=== PATIENT | female | born 1930 | race Hispanic/Latino ===

== ENCOUNTER 2018-01-11 09:18 | Emergency (ER) | payer MEDICARE, OTHER ==
[2018-01-11 09:18] VITALS: BMI 25.3
[2018-01-11 09:51] VITALS: O2SAT 98
[2018-01-11] MEDS ORDERED: Sodium Chloride 0.9% 500 ML IV SCH (11:00)
--- NOTE | 2018-01-11 11:01 | ED PDOC ---
HPI: General Adult Time Seen by Provider: 01/11/18 10:25 Chief Complaint (Nursing): Weakness/Neurological Deficit Chief Complaint (Provider): weakness History Per: Patient, Other (family friend at beside) History/Exam Limitations: no limitations Onset/Duration Of Symptoms: Other (4 days) Have you had recent travel within the past 21 days to any of the following countries: [place], [place], [place] or [place]?: No Current Symptoms Are (Timing): Intermittent Episodes Severity: Moderate Additional History Per: Prior Records Additional Complaint(s): pt p/w + sudden onset of not feeling well, + generalized weakness; pt states over the last 4 days or so, noted intermittent dizziness/room spinning feeling, + progressive weakness; pt states she was performing morning prayer today when she felt sudden weakness and "felt very cold on her inside;" pt's neighboorhood friend checked up on her and checked her BP and noted it to be elevated; no fever/chills/sweats, no cp/sob/palpitations, no abd pain, no n/v, no numbness/ tingling, no focal weakness, no vision changes, no lane, no neck pain, no urinary/ bowel changes, no incontinence; + b/l leg wobbly/weak feeling (has had in the past however); pt also was prescribed a alexis, but pt does not use regularly; pt states no slurr speech, no arm weakness, no fall/trauma/sick contact, no corporate travel expert is here for further eval pt's without other complaints. PCP: Joce pt lives alone pt is right hand dominate Past Medical History Reviewed: Historical Data, Nursing Documentation, Vital Signs Vital Signs: Last Vital Signs Temp 97.9 F 01/11/18 14:43 Pulse 70 01/11/18 14:43 Resp 17 01/11/18 14:43 BP 136/77 01/11/18 14:43 Pulse Ox 98 01/11/18 14:47 - Medical History PMH: Depression, HTN, Hypercholesterolemia - Surgical History Surgical History: Appendectomy, Cholecystectomy - Family History Family History: States: No Known Family Hx - Home Medications Home Medications: Ambulatory Orders Medication Instructions Recorded Ibuprofen [Motrin] 600 mg PO Q6 PRN #20 tab 05/20/15 Meclizine [Meclizine*] 25 mg PO TID PRN #15 tab 01/11/18 - Allergies Allergies/Adverse Reactions: Allergies Allergy/AdvReac Type Severity Reaction Status Date / Time Diazepam Allergy FATIGUE Uncoded 01/11/18 10:40 Review of Systems ROS Statement: Except As Marked, All Systems Reviewed And Found Negative Constitutional: Positive for: Weakness, Malaise Eyes: Negative for: Vision Change Cardiovascular: Negative for: Chest Pain, Light Headedness Gastrointestinal: Negative for: Nausea, Vomiting Neurological: Positive for: Weakness, Dizziness. Negative for: Altered Mental Status, Headache Physical Exam - Reviewed Nursing Documentation Reviewed: Yes Vital Signs Reviewed: Yes (mildly elevated BP) - Physical Exam Appears: Positive for: Well, Non-toxic, No Acute Distress Head Exam: Positive for: ATRAUMATIC, NORMAL INSPECTION, NORMOCEPHALIC Skin: Positive for: Normal Color (cap refill < 1sec, no ulcerations, no petechiae) Eye Exam: Positive for: Normal appearance, Other (no photophobia, sclera anicteric) ENT: Positive for: Normal ENT Inspection Neck: Positive for: Normal (intact ROM, no midline tenderness, no step off, no nuchal rigidity, no meningeal signs) Cardiovascular/Chest: Positive for: Regular Rate, Rhythm (+S1, +S2). 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 Negative for : Facial Droop - Laboratory Results Result Diagrams: 01/11/18 11:35 01/11/18 11:35 - ECG ECG: Positive for: Interpreted By Me Interpretation Of ECG: NSR at 65 bpm, normal axis, no ectopy, no st-t changes, NORMAL EKG; unchanged compare with old ekg 01/2017 O2 Sat by Pulse Oximetry: 98 Pulse Ox Interpretation: Normal - Progress ED Course And Treament: PROCEDURE: CT scan of the brain dated 01/11/2018 HISTORY: Weakness; no focal weakness currently COMPARISON: Comparison made with prior CT scan of the brain 06/24/2011 TECHNIQUE: Axial computed tomography images were obtained through the head/brain without intravenous contrast. Radiation dose: Total exam DLP = 724.0 mGy-cm. This CT exam was performed using one or more of the following dose reduction techniques: Automated exposure control, adjustment of the mA and/or kV according to patient size, and/or use of iterative reconstruction technique. FINDINGS: HEMORRHAGE: No evidence of acute parenchymal, subarachnoid or extra-axial hemorrhage. . BRAIN: Mild diffuse/ confluent chronic periventricular white as well as scattered subcortical ischemic changes. Additionally, there are scattered chronic bilateral basal nuclei lacunar type infarcts. Note that the possibility of a small hyperacute infarct cannot be completely excluded. Clinical correlation recommended. . No obvious parenchymal nor extra-axial mass or collection seen on this noncontrast study Mild vascular calcifications both carotid siphons. Mild to moderate age-appropriate volume loss with prominent as posterior fossa subarachnoid spaces VENTRICLES: No obstructive hydrocephalus. CALVARIUM: There are no acute calvarial fractures. . PARANASAL SINUSES: The frontal sinuses are underpneumatized/ hypoplastic. Remaining visualized paranasal sinuses are well-developed. MASTOID AIR CELLS: Unremarkable as visualized. No inflammatory changes. OTHER FINDINGS: Changes of bilateral cataract surgery are present. IMPRESSION: Chronic white matter and basal nuclei ischemic changes. Mild age-appropriate volume loss. Mild to moderate age-appropriate volume loss with prominent as posterior fossa subarachnoid spaces HISTORY: Weakness COMPARISON: No prior. TECHNIQUE: Chest PA and lateral FINDINGS: LUNGS: No acute consolidation. PLEURA: No significant pleural effusion identified. No pneumothorax apparent. CARDIOVASCULAR: Heart size is within range of normal. Aorta slightly ectatic and uncoiled. . OSSEOUS STRUCTURES: Mild levoscoliosis centered at the lower lumbar region. VISUALIZED UPPER ABDOMEN: Normal. OTHER FINDINGS: None. IMPRESSION: No acute consolidation. pt is doing well currently pt is not in any distress pt's daughter is now at bedside 2:30pm - pt is ambulatory without any assistance pt/family are made aware of her medical results pt is encouraged walking with her alexis at all times pt is encouraged fluids pt will f/u as directed pt will be discharged home Re-evaluation Time: 14:30 Condition: Improved - Physician Consult Information Time Consulting Physican Contacted: 14:27 Physician Contacted: josé antonio Outcome Of Conversation: spoke to PCP, made aware, agrees with ED mgt/txt/dx, will f/u with patient outpt for further eval Medical Decision Making Medical Decision Making: Impression: weakness, transient elevated BP i have consider all the differential diagnosis regarding pt's chief medical complaints/clinical findings, including but are not limited to: weakness, transiently elevated BP A/P: weakness, transiently elevated BP - labs - ct - ua - iv - xray - observe - supportive care 13:13 CXR FINDINGS: LUNGS: No acute consolidation. PLEURA: No significant pleural effusion identified. No pneumothorax apparent. CARDIOVASCULAR: Heart size is within range of normal. Aorta slightly ectatic and uncoiled. . OSSEOUS STRUCTURES: Mild levoscoliosis centered at the lower lumbar region. VISUALIZED UPPER ABDOMEN: Normal. OTHER FINDINGS: None. IMPRESSION: No acute consolidation. Disposition - Clinical Impression Clinical Impression: Dizziness, Weakness, Elevated blood pressure reading - Patient ED Disposition Is Patient to be Admitted: No Discussed With Dr.: Ricki Hobson Doctor Will See Patient In The: Office Counseled Patient/Family Regarding: Studies Performed, Diagnosis, Need For Followup, Rx Given - Disposition Referrals: Ricki Hobson MD [Staff Provider] - Disposition: Routine/Home Disposition Time: 14:33 Condition: STABLE Additional Instructions: Make sure to see your doctor in 1-2 days DRINK PLENTY OF FLUIDS take your medications as prescribed USE your alexis at all times RETURN TO ED IF worse pain, cant breath, persistent vomiting, high fever >101- 102 for hours, altered behavior, slurr speech, facial changes, cant see, focal weakness (arm/leg or both), unable to urinate, heavy/persistent bleeding, passing out, chest pain, or other medical emergencies Prescriptions: Meclizine [Meclizine*] 25 mg PO TID PRN #15 tab PRN Reason: Dizziness Instructions: Fatigue (DC), Generalized Weakness (DC), Dizziness, Nonvertigo, ( DC), Weakness (ED), Hypertension (ED) Forms: [employer] (Khmer) Print Language: SAMI
[2018-01-11 11:53] LABS: BASO % 0.3 % (0.0-2.0); EOS # 0.1 K/uL (0.0-0.7); EOS % 0.9 % (0.0-4.0); LYMPH # 1.6 K/uL (1.0-4.3); LYMPH % 20.9 % (20.0-40.0); MEAN CELL VOLUME 89.7 fl (81.0-99.0); MEAN CORPUSCULAR HGB CONC 34.5 g/dL (33.0-37.0); MEAN PLATELET VOLUME 7.3 fl (7.2-11.7); MONO # 0.3 K/uL (0.0-0.8); MONO % 4.5 % (0.0-10.0); NEUT # 5.7 K/uL (1.8-7.0); NEUT % 73.4 % (50.0-75.0); NRBC % 0.1 % (0.0-0.0); RBC 4.86 Mil/uL (3.80-5.20); RED CELL DISTRIBUTION WIDTH 13.5 % (11.5-14.5); WHITE BLOOD COUNT 7.7 K/uL (4.8-10.8)
[2018-01-11 12:02] LABS: URINE BILIRUBIN NEGATIVE (NEGATIVE); URINE BLOOD SMALL (NEGATIVE); URINE CLARITY CLEAR (Clear); URINE COLOR STRAW (YELLOW); URINE GLUCOSE (UA) NEG (Normal); URINE LEUKOCYTE ESTERASE NEG Leu/uL (Negative); URINE PROTEIN NEGATIVE (NEGATIVE); URINE UROBILINOGEN 0.2-1.0 mg/dL (0.2-1.0)
[2018-01-11 12:06] LABS: ALB/GLOB RATIO 1.1 (1.0-2.1); ALBUMIN 4.1 g/dL (3.5-5.0); ALT/SGPT 35 U/L (9-52); AST/SGOT 34 U/L (14-36); BLOOD UREA NITROGEN 14 mg/dl (7-17); CALCIUM 9.5 mg/dL (8.4-10.2); GFR AFRICAN-AMERICAN > 60; GFR NON-AFRICAN AMERICAN > 60; LIPASE 95 U/L (23-300)
--- NOTE | 2018-01-11 13:15 | RAD ---
HISTORY: Weakness COMPARISON: No prior. TECHNIQUE: Chest PA and lateral FINDINGS: LUNGS: No acute consolidation. PLEURA: No significant pleural effusion identified. No pneumothorax apparent. CARDIOVASCULAR: Heart size is within range of normal. Aorta slightly ectatic and uncoiled. . OSSEOUS STRUCTURES: Mild levoscoliosis centered at the lower lumbar region. VISUALIZED UPPER ABDOMEN: Normal. OTHER FINDINGS: None. IMPRESSION: No acute consolidation.
--- NOTE | 2018-01-11 13:25 | CT ---
PROCEDURE: CT scan of the brain dated 01/11/2018 HISTORY: Weakness; no focal weakness currently COMPARISON: Comparison made with prior CT scan of the brain 06/24/2011 TECHNIQUE: Axial computed tomography images were obtained through the head/brain without intravenous contrast. Radiation dose: Total exam DLP = 724.0 mGy-cm. This CT exam was performed using one or more of the following dose reduction techniques: Automated exposure control, adjustment of the mA and/or kV according to patient size, and/or use of iterative reconstruction technique. FINDINGS: HEMORRHAGE: No evidence of acute parenchymal, subarachnoid or extra-axial hemorrhage. . BRAIN: Mild diffuse/ confluent chronic periventricular white as well as scattered subcortical ischemic changes. Additionally, there are scattered chronic bilateral basal nuclei lacunar type infarcts. Note that the possibility of a small hyperacute infarct cannot be completely excluded. Clinical correlation recommended. . No obvious parenchymal nor extra-axial mass or collection seen on this noncontrast study Mild vascular calcifications both carotid siphons. Mild to moderate age-appropriate volume loss with prominent as posterior fossa subarachnoid spaces VENTRICLES: No obstructive hydrocephalus. CALVARIUM: There are no acute calvarial fractures. . PARANASAL SINUSES: The frontal sinuses are underpneumatized/ hypoplastic. Remaining visualized paranasal sinuses are well-developed. MASTOID AIR CELLS: Unremarkable as visualized. No inflammatory changes. OTHER FINDINGS: Changes of bilateral cataract surgery are present. IMPRESSION: Chronic white matter and basal nuclei ischemic changes. Mild age-appropriate volume loss. Mild to moderate age-appropriate volume loss with prominent as posterior fossa subarachnoid spaces
[2018-01-11 14:44] VITALS: BP 136/77; PULSE 70; RESP 17; TEMP 97.9
--- NOTE | 2018-01-12 18:16 | CARD ---
APPROVED REPORT EKG Measurement Heart [id number] <Conclusion> Normal sinus rhythm Normal ECG
== END 2018-01-11 14:53 | disposition home or self-care (01) ==
LOC: H.ER 09:18
DX: R42 Dizziness and giddiness (principal); I10 Essential (primary) hypertension; Z86.59 Personal history of other mental and behavioral disorders; E78.00 Pure hypercholesterolemia, unspecified
CPT/HCPCS: 70450; 71046; 80053; 81003; 83690; 83735; 84100; 84443; 84484; 85025; 93005; 96360; 96361; 99285; J7040

== ENCOUNTER 2018-04-10 08:01 | Emergency (ER) | payer MEDICARE, OTHER ==
[2018-04-10 08:04] VITALS: BMI 23.3
[2018-04-10] MEDS ORDERED: Sodium Chloride 0.9% 1,000 ML IV STA (08:09)
--- NOTE | 2018-04-10 08:24 | ED PDOC ---
HPI: General Adult Time Seen by Provider: 04/10/18 08:09 Chief Complaint (Nursing): GI Problem Chief Complaint (Provider): Dizziness History Per: Patient History/Exam Limitations: no limitations Onset/Duration Of Symptoms: Days (last night) Current Symptoms Are (Timing): Still Present Additional History Per: EMS Additional Complaint(s): 87 year old female with PMHx of osteoporosis and hypertension presents to ED via EMS complaining of dizziness onset last night. Reports it is not associated with headache, chest pain or palpitations. As per EMS, the patients apartment was air conditioned and not excessively hot. Patient denies nausea or vomiting. PMD: No Family Provider Past Medical History Reviewed: Historical Data, Nursing Documentation, Vital Signs Vital Signs: Last Vital Signs Temp 98.6 F 04/10/18 11:58 Pulse 89 04/10/18 11:58 Resp 20 04/10/18 11:58 BP 132/74 04/10/18 11:58 Pulse Ox 97 04/10/18 11:58 - Medical History PMH: Depression, HTN, Hypercholesterolemia Other PMH: osteoporosis - Surgical History Surgical History: Appendectomy, Cholecystectomy - Family History Family History: States: Unknown Family Hx - Home Medications Home Medications: Ambulatory Orders Medication Instructions Recorded Ibuprofen [Motrin] 600 mg PO Q6 PRN #20 tab 05/20/15 Meclizine [Meclizine*] 25 mg PO TID PRN #15 tab 01/11/18 Meclizine [Meclizine*] 25 mg PO Q8 #15 tab 04/10/18 - Allergies Allergies/Adverse Reactions: Allergies Allergy/AdvReac Type Severity Reaction Status Date / Time Diazepam Allergy FATIGUE Uncoded 04/10/18 08:06 Review of Systems ROS Statement: Except As Marked, All Systems Reviewed And Found Negative Cardiovascular: Negative for: Chest Pain, Palpitations Gastrointestinal: Negative for: Nausea, Vomiting Neurological: Positive for: Dizziness. Negative for: Headache Physical Exam - Reviewed Nursing Documentation Reviewed: Yes Vital Signs Reviewed: Yes - Physical Exam Appears: Positive for: Non-toxic Head Exam: Positive for: ATRAUMATIC, NORMAL INSPECTION, NORMOCEPHALIC Skin: Positive for: Normal Color, Warm, Dry Cardiovascular/Chest: Positive for: Regular Rate, Rhythm. Negative for: Murmur Respiratory: Positive for: Normal Breath Sounds. Negative for: Decreased Breath Sounds, Wheezing, Respiratory Distress Gastrointestinal/Abdominal: Positive for: Normal Exam, Bowel Sounds, Soft. Negative for: Tenderness, Guarding, Rebound Neurologic/Psych: Positive for: Alert, Oriented (x3) - Laboratory Results Result Diagrams: 04/10/18 08:29 04/10/18 08:29 - ECG O2 Sat by Pulse Oximetry: 98 (RA) Pulse Ox Interpretation: Normal Medical Decision Making Medical Decision Making: Time: 808 Initial Plan: --EKG --CMP --ED Urine dipstick --CBC w/ Differential --Antivert 25mg PO --Normal Saline 150mls/hr --Reevaluation Scribe Attestation: Documented by Antony Beltran, acting as a scribe for David Lopez MD Provider Scribe Attestation: All medical record entries made by the Scribe were at my direction and personally dictated by me. I have reviewed the chart and agree that the record accurately reflects my personal performance of the history, physical exam, medical decision making, and the department course for this patient. I have also personally directed, reviewed, and agree with the discharge instructions and disposition. Disposition - Clinical Impression Clinical Impression: Vertigo, Heat effects of - Patient ED Disposition Is Patient to be Admitted: No Counseled Patient/Family Regarding: Studies Performed, Diagnosis, Need For Followup, Rx Given - Disposition Referrals: Ricki Hobson MD [Staff Provider] - Disposition: Routine/Home Disposition Time: 11:45 Condition: FAIR Prescriptions: Meclizine [Meclizine*] 25 mg PO Q8 #15 tab Instructions: Vertigo (a Type of Dizziness) Forms: [employer] (Cameroonian)
[2018-04-10 08:34] LABS: BASO % 0.6 % (0.0-2.0); EOS # 0.1 K/uL (0.0-0.7); EOS % 2.5 % (0.0-4.0); HEMOGLOBIN 14.6 g/dL (12.0-16.0); LYMPH # 1.7 K/uL (1.0-4.3); LYMPH % 27.9 % (20.0-40.0); MEAN CELL VOLUME 88.9 fl (81.0-99.0); MEAN CORPUSCULAR HEMOGLOBIN 30.7 pg (27.0-31.0); MEAN CORPUSCULAR HGB CONC 34.6 g/dL (33.0-37.0); MONO # 0.4 K/uL (0.0-0.8); MONO % 6.7 % (0.0-10.0); NEUT # 3.7 K/uL (1.8-7.0); NEUT % 62.3 % (50.0-75.0); NRBC % 0.1 % (0.0-0.0); RBC 4.75 Mil/uL (3.80-5.20); RED CELL DISTRIBUTION WIDTH 13.4 % (11.5-14.5); WHITE BLOOD COUNT 5.9 K/uL (4.8-10.8)
[2018-04-10 08:53] LABS: ALB/GLOB RATIO 1.1 (1.0-2.1); ALBUMIN 4.2 g/dL (3.5-5.0); ALT/SGPT 36 U/L (9-52); AST/SGOT 37 U/L (14-36); BLOOD UREA NITROGEN 13 mg/dl (7-17); CALCIUM 9.4 mg/dL (8.4-10.2); GFR AFRICAN-AMERICAN > 60; GFR NON-AFRICAN AMERICAN > 60
[2018-04-10 11:59] VITALS: BP 132/74; PULSE 89; RESP 20; TEMP 98.6
[2018-04-10 12:37] VITALS: O2SAT 98
--- NOTE | 2018-04-10 14:58 | CARD ---
APPROVED REPORT EKG Measurement Heart [id number] <Conclusion> Normal sinus rhythm Normal ECG
== END 2018-04-10 12:13 | disposition home or self-care (01) ==
LOC: H.ER 08:01
DX: R42 Dizziness and giddiness (principal); T67.3XXA Heat exhaustion, anhydrotic, initial encounter; E78.00 Pure hypercholesterolemia, unspecified; F32.9 Major depressive disorder, single episode, unspecified; I10 Essential (primary) hypertension; M81.0 Age-related osteoporosis without current pathological fracture
CPT/HCPCS: 80053; 82948; 85025; 93005; 99285; J7030

== ENCOUNTER 2018-09-09 14:30 | Inpatient (IN) | payer MEDICARE, OTHER ==
[2018-09-09 14:30] VITALS: BMI 23.3
--- NOTE | 2018-09-09 15:39 | ED PDOC ---
HPI: Back <Chi Santana - Last Filed: 09/09/18 22:50> Chief Complaint (Provider): Back Pain History Per: Patient History/Exam Limitations: no limitations Onset/Duration Of Symptoms: Days (x14) Current Symptoms Are (Timing): Still Present Previous Symptoms: None Associated Symptoms: None Exacerbating Factor(s): Turning, Movement, Other (lying down) Additional Complaint(s): 88 y/o female with a PMHx of HTN and Peripheral Neuropathy presents to the ED for evaluation of constant back pain, onset two weeks ago. Patient states pain worsens with lying down, getting up and walking. Patient denies any injury. However, patient states symptoms esparza when she tried to lift the garage door. Patient reports of having seen a Chiropractor for symptom and was started on pain management where she was started on Flexeril. Patient additionally reports of taking Aleve. Patient denies history of chronic back pain, nausea, vomiting, diarrhea, abdominal pain, chest pain, urinary incontinence, urinary retention, numbness and weakness in the legs. PMD: Ricki Hobson <Madina Rosario A - Last Filed: 09/10/18 11:13> Time Seen by Provider: 09/09/18 14:57 Chief Complaint (Nursing): Back Pain Past Medical History Vital Signs: Last Vital Signs Temp 98.6 F 09/09/18 14:35 Pulse 65 09/09/18 19:34 Resp 18 09/09/18 17:41 BP 127/69 09/09/18 17:41 Pulse Ox 96 09/09/18 19:34 <Chi Santana - Last Filed: 09/09/18 22:50> Reviewed: Historical Data, Nursing Documentation, Vital Signs Vital Signs: Last Vital Signs Temp 98.6 F 09/09/18 14:35 Pulse 65 09/09/18 14:34 Resp BP 137/75 09/09/18 14:34 Pulse Ox 96 09/09/18 14:34 - Medical History PMH: Depression, HTN, Hypercholesterolemia Other PMH: Peripheral Neuropathy - Surgical History Surgical History: Appendectomy, Cholecystectomy - Family History Family History: States: Unknown Family Hx <Madina Rosario - Last Filed: 09/10/18 11:13> - Home Medications Home Medications: Ambulatory Orders Medication Instructions Recorded Atenolol [Tenormin] 50 mg PO DAILY 09/09/18 LORazepam [Ativan] 1 tab PO DAILY 09/09/18 Nortriptyline [Pamelor] 1 tab PO DAILY 09/09/18 Nortriptyline [Pamelor] 1 tab PO DAILY 09/09/18 Omeprazole 1 tab PO DAILY 09/09/18 Primidone [Mysoline] 0.5 tab PO DAILY 09/09/18 RX: Cyclobenzaprine [Flexeril] 5 mg PO BID 09/09/18 - Allergies Allergies/Adverse Reactions: Allergies Allergy/AdvReac Type Severity Reaction Status Date / Time Diazepam Allergy FATIGUE Uncoded 04/10/18 08:06 Review of Systems ROS Statement: Except As Marked, All Systems Reviewed And Found Negative Cardiovascular: Negative for: Chest Pain Gastrointestinal: Negative for: Nausea, Vomiting, Abdominal Pain, Diarrhea Genitourinary Female: Negative for: Frequency, Incontinence Musculoskeletal: Positive for: Back Pain Neurological: Negative for: Weakness, Numbness <Madina Rosario - Last Filed: 09/10/18 11:13> Physical Exam - Reviewed Nursing Documentation Reviewed: Yes Vital Signs Reviewed: Yes - Physical Exam Appears: Positive for: No Acute Distress Head Exam: Positive for: ATRAUMATIC, NORMOCEPHALIC Skin: Positive for: Normal Color, Warm, Dry Eye Exam: Positive for: Normal appearance, EOMI Neck: Positive for: Normal, Painless ROM Cardiovascular/Chest: Positive for: Regular Rate, Rhythm. Negative for: Murmur Respiratory: Positive for: Normal Breath Sounds. Negative for: Respiratory Dist ress Gastrointestinal/Abdominal: Positive for: Normal Exam, Soft. Negative for: Tenderness Back: Positive for: Muscle Spasm, Other (Mild bilateral paraspinal tenderness). Negative for: L CVA Tenderness, R CVA Tenderness Extremity: Positive for: Normal ROM. Negative for: Deformity Neurologic/Psych: Positive for: Alert, Oriented. Negative for: Motor/Sensory Deficits <Madina Rosario - Last Filed: 09/10/18 11:13> - Laboratory Results Result Diagrams: 09/09/18 15:55 09/09/18 15:25 <Chi Santana - Last Filed: 09/09/18 22:50> - Laboratory Results Result Diagrams: 09/10/18 04:40 09/10/18 04:40 - ECG ECG Rhythm: Positive for: Sinus Rhythm. Negative for: ST/T Changes Rate: 65 O2 Sat by Pulse Oximetry: 96 (RA) Pulse Ox Interpretation: Normal <Hieu Rosariojennifer Mary - Last Filed: 09/10/18 11:13> Medical Decision Making Medical Decision Making: Time: 1523 Impression: Back Pain Differentials include but not limited to musculoskeletal pain relating to arthritis, spinal stenosis and discorniation Plan: -- CT Lumbar Spine w/o Contrast -- EKG -- BMP -- ED Urine Dipstick -- CBC with Differentials -- Erythrocyte Sedimentation Rate -- Morphine 2 mg IVP -- Toradol 1 mg IVP Time: [address] RESULTS FINDINGS: VERTEBRAE: Unremarkable. No fracture. Normal alignment. DISCS/SPINAL CANAL/NEURAL FORAMINA: Multilevel severe degenerative disc disease with disc herniations at L1-2 and L3-4. PARASPINAL SOFT TISSUES: Unremarkable. OTHER FINDINGS: None. IMPRESSION: Multilevel severe degenerative disc disease. No acute fracture. Time: 165 -- Labs reviewed and demonstrate no clinically significant abnormalities. Time: 1720 Patient started to complain of chest pain. Ordered troponin and CT chest. [address] Santana, pending CT and reevaluation. Scribe Attestation: Documented by Li Ortiz, acting as a scribe for Madina Rosario MD. Provider Scribe Attestation: All medical record entries made by the Scribe were at my direction and personally dictated by me. I have reviewed the chart and agree that the record accurately reflects my personal performance of the history, physical exam, medical decision making, and the department course for this patient. I have also personally directed, reviewed, and agree with the discharge instructions and disposition. <Madina Rosario - Last Filed: 09/10/18 11:13> Disposition Discussed With DrClaudio: Ricki Hobson (Dr Ruiz) Counseled Patient/Family Regarding: Studies Performed, Diagnosis - Disposition Disposition Time: 20:00 - Pt Status Changed To: Hospital Disposition Of: Observation <Chi Santana - Last Filed: 09/09/18 22:50> - Patient ED Disposition Is Patient to be Admitted: Transfer of Care - Disposition Disposition: Transfer of Care - POA Present On Arrival: None <Madina Rosario - Last Filed: 09/10/18 11:13> - Clinical Impression Clinical Impression: Chest pain - Disposition Condition: FAIR
[2018-09-09 15:46] LABS: BASO % 0.4 % (0.0-2.0); EOS # 0.3 K/uL (0.0-0.7); EOS % 3.2 % (0.0-4.0); HEMOGLOBIN 13.1 g/dL (12.0-16.0); LYMPH # 1.9 K/uL (1.0-4.3); LYMPH % 21.1 % (20.0-40.0); MEAN CELL VOLUME 90.7 fl (81.0-99.0); MEAN CORPUSCULAR HEMOGLOBIN 30.8 pg (27.0-31.0); MEAN PLATELET VOLUME 7.1 fl (7.2-11.7); MONO # 0.6 K/uL (0.0-0.8); MONO % 6.9 % (0.0-10.0); NEUT # 6.2 K/uL (1.8-7.0); NEUT % 68.4 % (50.0-75.0); NRBC % 0.1 % (0.0-0.0); RBC 4.26 Mil/uL (3.80-5.20); RED CELL DISTRIBUTION WIDTH 13.5 % (11.5-14.5); WHITE BLOOD COUNT 9.1 K/uL (4.8-10.8)
[2018-09-09 15:55] LABS: BLOOD UREA NITROGEN 24 mg/dl (7-17); CALCIUM 8.9 mg/dL (8.4-10.2); GFR NON-AFRICAN AMERICAN > 60
--- NOTE | 2018-09-09 16:23 | CT ---
Date of service: 09/09/2018 PROCEDURE: CT Lumbar Spine without contrast HISTORY: lower back pain COMPARISON: None available. TECHNIQUE: Axial computed tomography images were obtained of the lumbar spine without the use of intravenous contrast. Coronal and sagittal reformatted images were created and reviewed. Radiation dose: Total exam DLP = 280.11 mGy-cm. This CT exam was performed using one or more of the following dose reduction techniques: Automated exposure control, adjustment of the mA and/or kV according to patient size, and/or use of iterative reconstruction technique. FINDINGS: VERTEBRAE: Unremarkable. No fracture. Normal alignment. DISCS/SPINAL CANAL/NEURAL FORAMINA: Multilevel severe degenerative disc disease with disc herniations at L1-2 and L3-4. PARASPINAL SOFT TISSUES: Unremarkable. OTHER FINDINGS: None. IMPRESSION: Multilevel severe degenerative disc disease. No acute fracture.
[2018-09-09] MEDS ORDERED: Iodixanol 320 MG/ML 100 ML BOTTLE IV ONE (18:18)
[2018-09-09] MEDS ORDERED: Sodium Chloride 0.9% 50 ML IV ONE (18:18)
--- NOTE | 2018-09-09 20:05 | ED PDOC ---
- Laboratory Results Result Diagrams: 09/09/18 15:55 09/09/18 15:25 - ECG O2 Sat by Pulse Oximetry: 96 (RA) Pulse Ox Interpretation: Normal Medical Decision Making Medical Decision Making: Time: 1899 Patient endorsed to me by Dr. Rosario, pending CT and reevaluation. 1821 CTA Chest FINDINGS: VASCULATURE: AORTA There is no evidence for aneurysm or dissection of the thoracic or abdominal aorta. Advanced atherosclerotic changes. PULMONARY ARTERIES The examination is optimized for assessment of the aorta, rather than the pul monary arteries. No evidence of central or segmental pulmonary embolism is seen. CHEST: Lungs: There is scarring both lungs. There is ill-defined pleural-parenchymal density measuring probably 1.3 x 1.4 cm containing calcification at the left upper lung anteriorly. Small ill-defined parenchymal density is seen at the right middle lobe along the right heart border. Pleural spaces: No evidence of pneumothorax. No pleural effusion. Heart: No cardiomegaly. No significant pericardial effusion. Calcified left hilar mediastinal lymph nodes suspected. ABDOMEN: LIVER Unremarkable. No mass. GALLBLADDER AND BILE DUCTS No calcified stone. No ductal dilation. PANCREAS Unremarkable. No ductal dilation. SPLEEN Unremarkable. ADRENAL No mass. KIDNEYS AND URETERS Multiple left renal cysts largest measuring approximately 4.3 x 2.4 cm present. No hydronephrosis. No solid mass. STOMACH AND BOWEL No obstruction. No bowel wall thickening. No CT evidence of acute diver ticulitis. Large amount of fecal material seen within the colon. APPENDIX No CT evidence of appendicitis. PELVIS: URINARY BLADDER Unremarkable. REPRODUCTIVE Calcified fibroids within the uterus. PERITONEUM No free fluid. No free air. LYMPH NODES No lymphadenopathy is evident. BONES Moderate compression deformity of the lower thoracic vertebral body. IMPRESSION: There is no evidence for aneurysm or dissection of the thoracic or abdominal aorta. Chronic changes within the lungs and old granulomatous disease suspected. Atherosclerotic changes. Left renal cyst. Calcified fibroid uterus. Moderate compression of forming a lower thoracic vertebral body. Clinical correlation advised. 2030 CT reviewed and case discussed with Dr. Hobson, who says patient should be under observation. Patient admitted to Dr. Ruiz, the hospitalist. Scribe Attestation: Documented by Edilma Parks, acting as a scribe for Chi Lema MD. Provider Scribe Attestation: All medical record entries made by the Scribe were at my direction and personally dictated by me. I have reviewed the chart and agree that the record accurately reflects my personal performance of the history, physical exam, medical decision making, and the department course for this patient. I have also personally directed, reviewed, and agree with the discharge instructions and disposition. Disposition - Clinical Impression Clinical Impression: Chest pain - POA Present On Arrival: None - Disposition Disposition: Hospitalized as Observation Patient Disposition Time: 20:00 Condition: FAIR
--- NOTE | 2018-09-09 20:46 | CARD ---
APPROVED REPORT Date of service: 09/09/2018 EKG Measurement Heart [id number] <Conclusion> Normal sinus rhythm Normal Electrocardiogram
--- NOTE | 2018-09-09 20:47 | CARD ---
APPROVED REPORT Date of service: 09/09/2018 EKG Measurement Heart [id number] <Conclusion> Normal sinus rhythm Normal Electrocardiogram
--- NOTE | 2018-09-09 21:14 | CP.PCM.HP ---
<Carlos Maxwell - Last Filed: 09/09/18 22:20> History of Present Illness - History of Present Illness History of Present Illness: 88 y/o female with a PMHx of HTN, Depression and Peripheral Neuropathy presents to the ED for evaluation of constant back pain since 2 weeks ago. Patient states that pain started when she tried to lift the garage door. Patient states pain worsens with lying down, getting up and walking. Patient denies any other injury. She went to a Chiropractor and was started on Flexeril and alleve. She reported not improve with medications and decide to come to the ED. She was taken for spine CT and on the way she started c/o chest pain like a pressure in the middle of chest and b/l jaws, 8/10 and constant. She denies sob, palpitations, arm pain, numbness or weakness, no recent illness or sick contacts. She endorses having this chest pain several times before and that goes on its own. Patient also denies history of chronic back pain, nausea, vomiting, diarrhea, abdominal pain, urinary incontinence, urinary retention, numbness and weakness in the legs. PMD: Dr Hobson PMH: HTN, Peripheral neuropathy Meds: see bellow FMH: mom from stroke, son with stroke PSH: appendectomy, cholecystectomy Allergy: Valium SH: denies etoh, tobacco or ilicit drugs use Present on Admission - Present on Admission Any Indicators Present on Admission: No Review of Systems - Review of Systems All systems: reviewed and no additional remarkable complaints except (HPI) Past Patient History - Past Social History Smoking Status: Never Smoked - CARDIAC Hx Hypercholesterolemia: Yes Hx Hypertension: Yes - PSYCHIATRIC Hx Depression: Yes - SURGICAL HISTORY Hx Appendectomy: Yes Hx Cholecystectomy: Yes - ANESTHESIA Hx Anesthesia: Yes Hx Anesthesia Reactions: No Meds Allergies/Adverse Reactions: Allergies Allergy/AdvReac Type Severity Reaction Status Date / Time Diazepam Allergy FATIGUE Uncoded 04/10/18 08:06 Physical Exam - Constitutional Appears: No Acute Distress - Head Exam Head Exam: NORMAL INSPECTION - Eye Exam Eye Exam: EOMI - Respiratory Exam Respiratory Exam: Clear to Auscultation Bilateral, NORMAL BREATHING PATTERN - Cardiovascular Exam Cardiovascular Exam: REGULAR RHYTHM, +S1, +S2. absent: Systolic Murmur - GI/Abdominal Exam GI & Abdominal Exam: Normal Bowel Sounds, Soft. absent: Distended, Tenderness - Extremities Exam Extremities exam: Negative for: pedal edema - Back Exam Back exam: paraspinal tenderness, tenderness (lumbar spine). absent: CVA tenderness (L), CVA tenderness (R) - Neurological Exam Neurological exam: Alert, CN II-XII Intact, Oriented x3 - Skin Skin Exam: Dry, Warm Results - Vital Signs Recent Vital Signs: Last Vital Signs Temp 98.6 F 09/09/18 14:35 Pulse 64 09/09/18 21:09 Resp 18 09/09/18 21:09 BP 135/99 H 09/09/18 21:09 Pulse Ox 100 09/09/18 21:09 - Labs Result Diagrams: 09/09/18 15:55 09/09/18 15:25 Labs: Laboratory Results - last 24 hr 09/09/18 09/09/18 09/09/18 15:25 15:55 16:13 WBC 9.1 D RBC 4.26 Hgb 13.1 Hct 38.6 MCV 90.7 MCH 30.8 MCHC 34.0 RDW 13.5 Plt Count 303 MPV 7.1 L Neut % (Auto) 68.4 Lymph % (Auto) 21.1 Jenkins % (Auto) 6.9 Eos % (Auto) 3.2 Baso % (Auto) 0.4 Neut # (Auto) 6.2 Lymph # (Auto) 1.9 Jenkins # (Auto) 0.6 Eos # (Auto) 0.3 Baso # (Auto) 0.0 ESR 42 H Sodium 141 Potassium 3.8 Chloride 106 Carbon Dioxide 26 Anion Gap 13 BUN 24 H Creatinine 0.8 Est GFR ( Amer) > 60 Est GFR (Non-Af Amer) > 60 Random Glucose 84 Calcium 8.9 Troponin I < 0.0120 09/09/18 19:43 WBC RBC Hgb Hct MCV MCH MCHC RDW Plt Count MPV Neut % (Auto) Lymph % (Auto) Jenkins % (Auto) Eos % (Auto) Baso % (Auto) Neut # (Auto) Lymph # (Auto) Jenkins # (Auto) Eos # (Auto) Baso # (Auto) ESR Sodium Potassium Chloride Carbon Dioxide Anion Gap BUN Creatinine Est GFR ( Amer) Est GFR (Non-Af Amer) Random Glucose Calcium Troponin I < 0.0120 Assessment & Plan - Assessment and Plan (Free Text) Assessment: 88 yo female patient with PMH of HTN admitted for evaluation and management of chest pain, r/o ACS. Plan: Chest pain - r/o ACS - admit to tele - continue threat monitoring analyst - s/p asa and NTG sl - troponin x2 negative - EKG normal sinus rhythm - Cardiology consulted - f/u labs and trending troponin in am - EKG and Echo in am Back pain - likely secondary to muscle strain, hx of heavy lifting - Lumbar CT: severe multilevel degenerative disc disease, no fractures - continue Naprosyn BID - morphine for severe pain - thoracic X ray in am History of HTN - controlled - continue home meds Peripheral neuropathy - controlled - continue home meds Hx of depression - controlled - continue home meds Prophylaxis - DVT: lovenox sc daily - GI: Protonix bid <Eros Ruiz - Last Filed: 09/10/18 00:14> Results - Vital Signs Recent Vital Signs: Last Vital Signs Temp 97.9 F 09/09/18 21:39 Pulse 64 09/09/18 21:39 Resp 18 09/09/18 21:39 BP 126/64 09/09/18 21:39 Pulse Ox 96 09/09/18 22:54 - Labs Result Diagrams: 09/09/18 15:55 09/09/18 15:25 Labs: Laboratory Results - last 24 hr 09/09/18 09/09/18 09/09/18 15:25 15:55 16:13 WBC 9.1 D RBC 4.26 Hgb 13.1 Hct 38.6 MCV 90.7 MCH 30.8 MCHC 34.0 RDW 13.5 Plt Count 303 MPV 7.1 L Neut % (Auto) 68.4 Lymph % (Auto) 21.1 Jenkins % (Auto) 6.9 Eos % (Auto) 3.2 Baso % (Auto) 0.4 Neut # (Auto) 6.2 Lymph # (Auto) 1.9 Jenkins # (Auto) 0.6 Eos # (Auto) 0.3 Baso # (Auto) 0.0 ESR 42 H Sodium 141 Potassium 3.8 Chloride 106 Carbon Dioxide 26 Anion Gap 13 BUN 24 H Creatinine 0.8 Est GFR ( Amer) > 60 Est GFR (Non-Af Amer) > 60 Random Glucose 84 Calcium 8.9 Troponin I < 0.0120 09/09/18 19:43 WBC RBC Hgb Hct MCV MCH MCHC RDW Plt Count MPV Neut % (Auto) Lymph % (Auto) Jenkins % (Auto) Eos % (Auto) Baso % (Auto) Neut # (Auto) Lymph # (Auto) Jenkins # (Auto) Eos # (Auto) Baso # (Auto) ESR Sodium Potassium Chloride Carbon Dioxide Anion Gap BUN Creatinine Est GFR ( Amer) Est GFR (Non-Af Amer) Random Glucose Calcium Troponin I < 0.0120 Attending/Attestation - Attestation I have personally seen and examined this patient.: Yes I have fully participated in the care of the patient.: Yes I have reviewed all pertinent clinical information: Yes Notes (Text): 09/09/18 23:41 I saw, examined and discussed this patient with Dr Maxwell. I agree with her assessment and plan which indicate my direct input. Ms Duncan is an 88 years old female with hx of HTN and HLD, who comes with 2 weeks of lower back pain, not relieved by Chiropractor nor with what is diego cribed as an epidural. Here in the ED she developed retrosternal chest pain radiating to both sides of the jaws. This was relieved in 15 minutes after receiving NTG . For the Chest pain we will r/o ACS with serial Tropinin and EKG, ECHO. consult Cardiology, and start PRN NTG SL. We will hold ASA at this time until patient is seen by Orthopedic. Treat with Pantoprazole Treat the back pain, degenerative disc disease with NSAID and Morphine, Thoracic spine X Rays, OT/PT and consult Ortho for possible Kyphoplasty of the compression deformity of the lower thoracic vertebral body. Pulmonary consult for the Chronic lung changes of granulomatus disease. Continue home medication for depression. Eros Ruiz MD
[2018-09-09] MEDS ORDERED: Pantoprazole 40 mg EC Tab PO STA (21:28)
[2018-09-09] MEDS: Naproxen 500 MG TAB PO SCH (23:14)
[2018-09-10] MEDS: Potassium Chl 20 mEq in D5-NS 1,000 ML IV SCH ×3 (03:50→21:19)
[2018-09-10 05:41] LABS: BASO % 0.2 % (0.0-2.0); EOS # 0.2 K/uL (0.0-0.7); EOS % 3.1 % (0.0-4.0); HEMOGLOBIN 12.6 g/dL (12.0-16.0); LYMPH # 0.7 K/uL (1.0-4.3); LYMPH % 10.3 % (20.0-40.0); MEAN CELL VOLUME 88.3 fl (81.0-99.0); MEAN CORPUSCULAR HEMOGLOBIN 30.7 pg (27.0-31.0); MEAN CORPUSCULAR HGB CONC 34.8 g/dL (33.0-37.0); MONO # 0.5 K/uL (0.0-0.8); MONO % 6.6 % (0.0-10.0); NEUT # 5.7 K/uL (1.8-7.0); NEUT % 79.8 % (50.0-75.0); NRBC % 0.1 % (0.0-0.0); RBC 4.12 Mil/uL (3.80-5.20); RED CELL DISTRIBUTION WIDTH 13.3 % (11.5-14.5); WHITE BLOOD COUNT 7.1 K/uL (4.8-10.8)
[2018-09-10 06:03] LABS: ALBUMIN 3.3 g/dL (3.5-5.0); ALT/SGPT 288 U/L (9-52); AST/SGOT 455 U/L (14-36); BLOOD UREA NITROGEN 17 mg/dl (7-17); CALCIUM 8.8 mg/dL (8.4-10.2); GFR NON-AFRICAN AMERICAN > 60
[2018-09-10] MEDS ORDERED: Potassium Chloride 20 mEq ER Tab PO ONE (06:31)
[2018-09-10] MEDS: Enoxaparin 40 mg Syringe SC SCH (08:51)
[2018-09-10] MEDS: Naproxen 500 MG TAB PO SCH ×2 (08:53→21:17)
[2018-09-10] MEDS: Pantoprazole 40 mg EC Tab PO SCH ×2 (08:55→21:17)
[2018-09-10] MEDS ORDERED: Pantoprazole 40 mg EC Tab PO SCH (09:00)
--- NOTE | 2018-09-10 09:20 | CP.PCM.CON ---
History of Present Illness - History of Present Illness History of Present Illness: This 88-year-old hypertensive female came into the emergency room complaining of chest discomfort which occurred when she attempted to open a window forcibly. This discomfort did not radiate into her jaw or arms and was not accompanied by any perspiration or nausea or vomiting. The patient reports that she is able to walk 3-4 blocks mostly hampered by her low back pain and has never experienced any chest pain while walking. The patient does indicate that approximately 3 or 4 times during last year she has vaguely felt a retrosternal discomfort when lying in bed accompanied by some jaw discomfort which is never accompanied by any perspiration nausea or vomiting and subsided spontaneously within 10-15 minutes. The patient has a long history of hypertension and takes her medicines regularl y. She admits to smoking when she was 18 years old for a few months. She denies any history of diabetes and has never suffered a myocardial infarction or congestive cardiac failure. Her son underwent cardiac surgery of uncertain nature. Otherwise no other family member has any cardiac issues. Physical examination shows an elderly pleasant female who is able to lie virtually flat in bed and breathes comfortably at 16 breaths a minute and can carry on a conversation. Her heart rate was 70 bpm regular and her blood pressure was 140/74 mmHg. Her jugular venous pressure was not elevated and there was no edema over her lower extremity. The pedal pulses were well felt. Her extremities were warm and nailbeds were pink. There was no central or peripheral cyanosis. There was no clubbing. The apex was not palpable the first and second heart sounds are normal there was no murmur no gallop no rales. Her abdomen was soft liver and spleen are not palpable. Her electrocardiogram taken twice yesterday shows sinus rhythm with a tiny Q wave in lead V2 but otherwise a normal pattern. A similar electrocardiogram is recorded on multiple occasions over last 3-4 years. Her labs show normal troponin levels 3 every 8 hours since her admission. The rest of her labs were noted. Her liver enzymes appeared significantly elevated. There were normal barely 4-5 months back. Impression: Atypical chest pain with no evidence of acute coronary syndrome. The patient is stable from cardiovascular point of view and may be allowed to return home. She would require a nuclear stress test with Lexiscan to evaluate the rare episodes of chest discomfort which she has described over last one year which occurred at rest. 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 - ENDOCRINE/METABOLIC Hx Endocrine Disorders: No - HEMATOLOGICAL/ONCOLOGICAL Hx AIDS: No Hx Human Immunodeficiency Virus (HIV): No - INTEGUMENTARY Hx Dermatological Problems: No - MUSCULOSKELETAL/RHEUMATOLOGICAL Hx Musculoskeletal Disorders: Yes Hx Arthritis: Yes Hx Back Pain: Yes Hx Falls: Yes (slipped on ice in the past) - GASTROINTESTINAL Hx Gastrointestinal Disorders: Yes Hx Gastroesophageal Reflux: Yes Other/Comment: heartburn on medication for it - GENITOURINARY/GYNECOLOGICAL Hx Genitourinary Disorders: Yes Other/Comment: occasional incontinence, wears pads - PSYCHIATRIC Hx Depression: Yes - SURGICAL HISTORY Hx Appendectomy: Yes Hx Cholecystectomy: Yes - ANESTHESIA Hx Anesthesia: Yes Hx Anesthesia Reactions: No Meds Allergies/Adverse Reactions: Allergies Allergy/AdvReac Type Severity Reaction Status Date / Time Diazepam Allergy FATIGUE Uncoded 04/10/18 08:06 - Medications Medications: Current Medications Aspirin (Aspirin Chewable) 81 mg PO DAILY [facility] Last Admin: 09/10/18 08:45 Dose: 81 mg Atenolol (Tenormin) 50 mg PO DAILY [facility] Last Admin: 09/10/18 08:55 Dose: 50 mg Enoxaparin Sodium (Lovenox) 40 mg SC DAILY [facility]; Protocol Last Admin: 09/10/18 08:51 Dose: Not Given Potassium Chloride/Dextrose/Sod Cl (Potassium Chl 20 Meq In D5-Ns) 1,000 mls @ 100 mls/hr IV .Q10H [facility] Last Admin: 09/10/18 03:50 Dose: 100 mls/hr Lorazepam (Ativan) 1 mg PO DAILY [facility] Last Admin: 09/10/18 08:47 Dose: 1 mg Morphine Sulfate (Morphine) 1 mg IVP Q6 PRN PRN Reason: Pain, severe (8-10) Naproxen (Naproxen) 500 mg PO Q12H [facility] Last Admin: 09/10/18 08:53 Dose: 500 mg Nitroglycerin (Nitrostat Sl Tab) 0.4 mg SL Q5M PRN PRN Reason: Other Nortriptyline HCl (Pamelor) 10 mg PO HS [facility] Last Admin: 09/09/18 23:56 Dose: 10 mg Nortriptyline HCl (Pamelor) 25 mg PO [facility] Last Admin: 09/09/18 23:55 Dose: 25 mg Pantoprazole Sodium (Protonix Ec Tab) 40 mg PO Q12 [facility] Last Admin: 09/10/18 08:55 Dose: 40 mg Primidone (Mysoline) 25 mg PO HS [facility] Last Admin: 09/09/18 23:55 Dose: 25 mg Results - Vital Signs Recent Vital Signs: Last Vital Signs Temp 98.1 F 09/10/18 08:01 Pulse 80 09/10/18 08:55 Resp 22 09/10/18 08:01 BP 136/65 09/10/18 08:55 Pulse Ox 95 09/10/18 08:01 - Labs Result Diagrams: 09/10/18 04:40 09/10/18 04:40 Labs: Laboratory Results - last 24 hr 09/09/18 09/09/18 09/09/18 15:25 15:55 16:13 WBC 9.1 D RBC 4.26 Hgb 13.1 Hct 38.6 MCV 90.7 MCH 30.8 MCHC 34.0 RDW 13.5 Plt Count 303 MPV 7.1 L Neut % (Auto) 68.4 Lymph % (Auto) 21.1 Chambers % (Auto) 6.9 Eos % (Auto) 3.2 Baso % (Auto) 0.4 Neut # (Auto) 6.2 Lymph # (Auto) 1.9 Chambers # (Auto) 0.6 Eos # (Auto) 0.3 Baso # (Auto) 0.0 ESR 42 H Sodium 141 Potassium 3.8 Chloride 106 Carbon Dioxide 26 Anion Gap 13 BUN 24 H Creatinine 0.8 Est GFR ( Amer) > 60 Est GFR (Non-Af Amer) > 60 Random Glucose 84 Calcium 8.9 Total Bilirubin AST ALT Alkaline Phosphatase Troponin I < 0.0120 Total Protein Albumin Globulin Albumin/Globulin Ratio 09/09/18 09/10/18 09/10/18 19:43 04:40 04:40 WBC 7.1 RBC 4.12 Hgb 12.6 Hct 36.3 MCV 88.3 D MCH 30.7 MCHC 34.8 RDW 13.3 Plt Count 237 MPV 7.0 L Neut % (Auto) 79.8 H Lymph % (Auto) 10.3 L Chambers % (Auto) 6.6 Eos % (Auto) 3.1 Baso % (Auto) 0.2 Neut # (Auto) 5.7 Lymph # (Auto) 0.7 L Chambers # (Auto) 0.5 Eos # (Auto) 0.2 Baso # (Auto) 0.0 ESR Sodium 140 Potassium 3.4 L Chloride 105 Carbon Dioxide 27 Anion Gap 11 BUN 17 Creatinine 0.8 Est GFR ( Amer) > 60 Est GFR (Non-Af Amer) > 60 Random Glucose 97 Calcium 8.8 Total Bilirubin 0.6 AST 455 H D ALT 288 H D Alkaline Phosphatase 186 H D Troponin I < 0.0120 < 0.0120 Total Protein 6.6 Albumin 3.3 L D Globulin 3.4 Albumin/Globulin Ratio 1.0
--- NOTE | 2018-09-10 09:36 | CP.PCM.CON ---
History of Present Illness - History of Present Illness History of Present Illness: This 88-year-old female who is well known to me from the outpatient setting presented to the emergency department because of severe low back pain which began 2 weeks prior and has not responded to outpatient treatment. She did recall having attempted to open a garage door which was very heavy after which she began to feel this discomfort. She was seen in outpatient setting by a chiropractor and pain management and was started on Flexeril. She did not complain of weakness in the legs or urinary incontinence. She did have an abr upt onset of severe anterior chest pain while in the emergency department and underwent a CT angiogram of the thorax. There is no evidence of abdominal aortic dissection nor any evidence of pulmonary. The finding of note was a CT of the lumbar spine revealed multilevel severe degenerative disc disease, and a compression deformity of the T12 vertebral body was also reported. Past Patient History - Past Medical History & Family History Past Medical History?: Yes - Past Social History Smoking Status: Never Smoked (very briefly during teenage years only a few cigarett) Chewing Tobacco Use: No Cigar Use: No Alcohol: Social Drugs: Denies Home Situation {Lives}: Alone - CARDIAC Hx Hypercholesterolemia: Yes Hx Hypertension: Yes - PULMONARY Hx Respiratory Disorders: No - NEUROLOGICAL Hx Neurological Disorder: No - HEENT Hx HEENT Problems: No - RENAL Hx Chronic Kidney Disease: Yes Other/Comment: cyst to left kidney - ENDOCRINE/METABOLIC Hx Endocrine Disorders: No - HEMATOLOGICAL/ONCOLOGICAL Hx AIDS: No Hx Hepatitis C: Yes (antibody positive) Hx Human Immunodeficiency Virus (HIV): No - INTEGUMENTARY Hx Dermatological Problems: No - MUSCULOSKELETAL/RHEUMATOLOGICAL Hx Arthritis: Yes Hx Back Pain: Yes Hx Falls: Yes (slipped on ice in the past) - GASTROINTESTINAL Hx Gastroesophageal Reflux: Yes Other/Comment: heartburn on medication for it - GENITOURINARY/GYNECOLOGICAL Hx Genitourinary Disorders: Yes Other/Comment: occasional incontinence, wears pads - PSYCHIATRIC Hx Depression: Yes - SURGICAL HISTORY Hx Appendectomy: Yes Hx Cholecystectomy: Yes - ANESTHESIA Hx Anesthesia: Yes Hx Anesthesia Reactions: No Meds Home Medications: Home Medication List Medication Instructions Recorded Confirmed Type Aspirin [Aspirin Chewable] 81 mg PO DAILY chew 09/11/18 Rx Lidocaine 5% [Lidoderm] 2 ea TD DAILY #60 patch 09/11/18 Rx Naproxen 500 mg PO DAILY PRN tab 09/11/18 Rx Atenolol 100 mg PO DAILY #30 tab 09/17/18 Rx Allergies/Adverse Reactions: Allergies Allergy/AdvReac Type Severity Reaction Status Date / Time Diazepam Allergy FATIGUE Uncoded 04/10/18 08:06 - Medications Medications: Current Medications Aspirin (Aspirin Chewable) 81 mg PO DAILY [facility] Last Admin: 09/10/18 08:45 Dose: 81 mg Atenolol (Tenormin) 50 mg PO DAILY [facility] Last Admin: 09/10/18 08:55 Dose: 50 mg Enoxaparin Sodium (Lovenox) 40 mg SC DAILY [facility]; Protocol Last Admin: 09/10/18 08:51 Dose: Not Given Potassium Chloride/Dextrose/Sod Cl (Potassium Chl 20 Meq In D5-Ns) 1,000 mls @ 100 mls/hr IV .Q10H [facility] Last Admin: 09/10/18 03:50 Dose: 100 mls/hr Lorazepam (Ativan) 1 mg PO DAILY [facility] Last Admin: 09/10/18 08:47 Dose: 1 mg Morphine Sulfate (Morphine) 1 mg IVP Q6 PRN PRN Reason: Pain, severe (8-10) Naproxen (Naproxen) 500 mg PO Q12H [facility] Last Admin: 09/10/18 08:53 Dose: 500 mg Nitroglycerin (Nitrostat Sl Tab) 0.4 mg SL Q5M PRN PRN Reason: Other Nortriptyline HCl (Pamelor) 10 mg PO [facility] Last Admin: 09/09/18 23:56 Dose: 10 mg Nortriptyline HCl (Pamelor) 25 mg PO [facility] Last Admin: 09/09/18 23:55 Dose: 25 mg Pantoprazole Sodium (Protonix Ec Tab) 40 mg PO Q12 [facility] Last Admin: 09/10/18 08:55 Dose: 40 mg Primidone (Mysoline) 25 mg PO [facility] Last Admin: 09/09/18 23:55 Dose: 25 mg Physical Exam - Additional Findings Additional findings: Well-nourished, well-developed in mild to moderate distress because of back pain. She appears comfortable at rest but has severe pain with simple movement in bed. Speech is fluent and memory appears intact. Conjunctivae are pink and there is no scleral icterus. Pupils equal and reactive. Neck is supple and trachea is midline. No neck vein distention or carotid bruit. Pharynx is pink and mucous membranes are moist without exudate. Nares are patent bilaterally without exudate or bleeding. No dullness on chest percussion. Equal expansion. Breath sounds are well heard bilaterally without any rales or wheezes. No bronchial breathing or egophony. Markedly tenderness is noted with palpation over the lower thoracic/upper lumbar spine. Heart sounds are well heard and the rhythm is regular without murmur. The abdomen is soft, nontender with normal bowel sounds. No palpable HSM. No dependent edema of lower extremities. No calf tenderness. No CVA tenderness. No cyanosis, rash or ecchymosis. Results - Vital Signs Recent Vital Signs: Last Vital Signs Temp 98.1 F 09/10/18 08:01 Pulse 80 09/10/18 08:55 Resp 22 09/10/18 08:01 BP 136/65 09/10/18 08:55 Pulse Ox 95 09/10/18 08:01 - Labs Result Diagrams: 09/15/18 05:30 09/15/18 05:30 Labs: Laboratory Results - last 24 hr 09/09/18 09/09/18 09/09/18 15:25 15:55 16:13 WBC 9.1 D RBC 4.26 Hgb 13.1 Hct 38.6 MCV 90.7 MCH 30.8 MCHC 34.0 RDW 13.5 Plt Count 303 MPV 7.1 L Neut % (Auto) 68.4 Lymph % (Auto) 21.1 [place] % (Auto) 6.9 Eos % (Auto) 3.2 Baso % (Auto) 0.4 Neut # (Auto) 6.2 Lymph # (Auto) 1.9 [place] # (Auto) 0.6 Eos # (Auto) 0.3 Baso # (Auto) 0.0 ESR 42 H Sodium 141 Potassium 3.8 Chloride 106 Carbon Dioxide 26 Anion Gap 13 BUN 24 H Creatinine 0.8 Est GFR ( Amer) > 60 Est GFR (Non-Af Amer) > 60 Random Glucose 84 Calcium 8.9 Total Bilirubin AST ALT Alkaline Phosphatase Troponin I < 0.0120 Total Protein Albumin Globulin Albumin/Globulin Ratio 09/09/18 09/10/18 09/10/18 19:43 04:40 04:40 WBC 7.1 RBC 4.12 Hgb 12.6 Hct 36.3 MCV 88.3 D MCH 30.7 MCHC 34.8 RDW 13.3 Plt Count 237 MPV 7.0 L Neut % (Auto) 79.8 H Lymph % (Auto) 10.3 L [place] % (Auto) 6.6 Eos % (Auto) 3.1 Baso % (Auto) 0.2 Neut # (Auto) 5.7 Lymph # (Auto) 0.7 L [place] # (Auto) 0.5 Eos # (Auto) 0.2 Baso # (Auto) 0.0 ESR Sodium 140 Potassium 3.4 L Chloride 105 Carbon Dioxide 27 Anion Gap 11 BUN 17 Creatinine 0.8 Est GFR ( Amer) > 60 Est GFR (Non-Af Amer) > 60 Random Glucose 97 Calcium 8.8 Total Bilirubin 0.6 AST 455 H D ALT 288 H D Alkaline Phosphatase 186 H D Troponin I < 0.0120 < 0.0120 Total Protein 6.6 Albumin 3.3 L D Globulin 3.4 Albumin/Globulin Ratio 1.0 Assessment & Plan (1) Back pain of thoracolumbar region Status: Acute Priority: High (2) Elevated LFTs Status: Acute Priority: High (3) Hepatitis C antibody positive in blood Status: Chronic Priority: High - Assessment and Plan (Free Text) Plan: Monitor liver function studies. Etiology may be secondary to Flexeril which was begun after seeing chiropractor. Hep C viral titers. - Date & Time Date: 09/10/18 Time: 09:36
--- NOTE | 2018-09-10 10:56 | CP.PCM.PN ---
<Sourav Roblero - Last Filed: 09/10/18 13:15> Subjective - Date & Time of Evaluation Date of Evaluation: 09/10/18 Time of Evaluation: 08:30 - Subjective Subjective: Pt seen and examined at bedside. Denies chest pain or acute events overnight. Reports chronic history of GERD. Tolerating PO diet. Experiencing regular/normal bowel movements. Objective - Vital Signs/Intake and Output Vital Signs (last 24 hours): Temp Pulse Resp BP Pulse Ox 98.1 F 80 22 136/65 95 09/10/18 08:01 09/10/18 08:55 09/10/18 08:01 09/10/18 08:55 09/10/18 08:01 Intake and Output: 09/10/18 09/10/18 06:59 18:59 Intake Total 600 Output Total 350 100 Balance 250 -100 - Medications Medications: Current Medications Aspirin (Aspirin Chewable) 81 mg PO DAILY [facility] Last Admin: 09/10/18 08:45 Dose: 81 mg Atenolol (Tenormin) 50 mg PO DAILY [facility] Last Admin: 09/10/18 08:55 Dose: 50 mg Enoxaparin Sodium (Lovenox) 40 mg SC DAILY [facility]; Protocol Last Admin: 09/10/18 08:51 Dose: Not Given Potassium Chloride/Dextrose/Sod Cl (Potassium Chl 20 Meq In D5-Ns) 1,000 mls @ 100 mls/hr IV .Q10H [facility] Last Admin: 09/10/18 03:50 Dose: 100 mls/hr Lorazepam (Ativan) 1 mg PO DAILY [facility] Last Admin: 09/10/18 08:47 Dose: 1 mg Morphine Sulfate (Morphine) 1 mg IVP Q6 PRN PRN Reason: Pain, severe (8-10) Naproxen (Naproxen) 500 mg PO Q12H [facility] Last Admin: 09/10/18 08:53 Dose: 500 mg Nitroglycerin (Nitrostat Sl Tab) 0.4 mg SL Q5M PRN PRN Reason: Other Nortriptyline HCl (Pamelor) 10 mg PO HS [facility] Last Admin: 09/09/18 23:56 Dose: 10 mg Nortriptyline HCl (Pamelor) 25 mg PO HS [facility] Last Admin: 09/09/18 23:55 Dose: 25 mg Pantoprazole Sodium (Protonix Ec Tab) 40 mg PO Q12 [facility] Last Admin: 09/10/18 08:55 Dose: 40 mg Primidone (Mysoline) 25 mg PO HS [facility] Last Admin: 09/09/18 23:55 Dose: 25 mg - Labs Labs: 09/10/18 04:40 09/10/18 04:40 - Constitutional Appears: Well, Non-toxic - Eye Exam Eye Exam: EOMI - Neck Exam Neck Exam: Full ROM - Respiratory Exam Respiratory Exam: Clear to Ausculation Bilateral, NORMAL BREATHING PATTERN. absent: Wheezes - Cardiovascular Exam Cardiovascular Exam: REGULAR RHYTHM, +S1, +S2. absent: Murmur - GI/Abdominal Exam GI & Abdominal Exam: Soft, Normal Bowel Sounds. absent: Tenderness - Extremities Exam Extremities Exam: absent: Calf Tenderness - Neurological Exam Neurological Exam: Alert, Awake, CN II-XII Intact, Oriented x3 - Psychiatric Exam Psychiatric exam: Normal Affect, Normal Mood Assessment and Plan - Assessment and Plan (Free Text) Assessment: 88 yo female patient with PMH of HTN, GERD admitted for evaluation and management of chest pain, r/o ACS. 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 Bass: atypical chest pain with no evidence of acute coronary syndrome. Stable and allowed to return home. Nuclear stress test with lexicsan. - Pantoprazole - f/u: EKG and Echo: performed; pending official report Degenerative disc disease - likely secondary to muscle strain, hx of heavy lifting - Lumbar CT: severe multilevel degenerative disc disease, no acute fractures - continue Naprosyn BID - morphine for severe pain - thoracic X ray: pending - PT/OT: ambulation with cane - Physiatry: Dr. Garsia consulted - considering consulting Orthopedics - CTA: chest, abdo, pelvis: pending official read Chronic lung changes of granulomatus disease - Pulmonary consulted: Dr. Hobson: f/u hepatitis panel, quant gold - CXR pulmonary vascular congestion Transaminitis -f/u hepatitis panel, urine tox -f/u CMP -d/c flexeril, possible side affect on liver -Considering hepatotoxic agents and possible GI consult Hypokalemia -K 3.4 -Kcl 20 meq with IVF -f/u CMP History of HTN - controlled - continue home meds Peripheral neuropathy - controlled - continue home meds Hx of depression - controlled - continue home meds Prophylaxis - DVT: lovenox sc daily - GI: Protonix bid Case dw Dr. Sacha Roblero MD PGY2 <Mable Goncalves - Last Filed: 09/10/18 14:33> Objective - Vital Signs/Intake and Output Vital Signs (last 24 hours): Temp Pulse Resp BP Pulse Ox 98.4 F 73 19 109/62 97 09/10/18 12:29 09/10/18 12:29 09/10/18 12:29 09/10/18 12:29 09/10/18 12:29 Intake and Output: 09/10/18 09/10/18 06:59 18:59 Intake Total 600 Output Total 350 100 Balance 250 -100 - Medications Medications: Current Medications Aspirin (Aspirin Chewable) 81 mg PO DAILY [facility] Last Admin: 09/10/18 08:45 Dose: 81 mg Atenolol (Tenormin) 50 mg PO DAILY [facility] Last Admin: 09/10/18 08:55 Dose: 50 mg Enoxaparin Sodium (Lovenox) 40 mg SC DAILY [facility]; Protocol Last Admin: 09/10/18 08:51 Dose: Not Given Potassium Chloride/Dextrose/Sod Cl (Potassium Chl 20 Meq In D5-Ns) 1,000 mls @ 100 mls/hr IV .Q10H [facility] Last Admin: 09/10/18 12:33 Dose: 100 mls/hr Lorazepam (Ativan) 1 mg PO DAILY [facility] Last Admin: 09/10/18 08:47 Dose: 1 mg Morphine Sulfate (Morphine) 1 mg IVP Q6 PRN PRN Reason: Pain, severe (8-10) Naproxen (Naproxen) 500 mg PO Q12H [facility] Last Admin: 09/10/18 08:53 Dose: 500 mg Nitroglycerin (Nitrostat Sl Tab) 0.4 mg SL Q5M PRN PRN Reason: Other Nortriptyline HCl (Pamelor) 10 mg PO HS [facility] Last Admin: 09/09/18 23:56 Dose: 10 mg Nortriptyline HCl (Pamelor) 25 mg PO HS [facility] Last Admin: 12/02/18 23:55 Dose: 25 mg Pantoprazole Sodium (Protonix Ec Tab) 40 mg PO Q12 [facility] Last Admin: 09/10/18 08:55 Dose: 40 mg Primidone (Mysoline) 25 mg PO HS [facility] Last Admin: 09/09/18 23:55 Dose: 25 mg - Labs Labs: 09/10/18 04:40 09/10/18 04:40 Attending/Attestation - Attestation I have personally seen and examined this patient.: Yes I have fully participated in the care of the patient.: Yes I have reviewed all pertinent clinical information, including history, physical exam and plan: Yes Notes (Text): Chest Pain, ACS ruled out prob musculoskeletal Pain - seen by Cardio and cleared - outpt Nuclear Stress test Back Pain , with Compression Deformity Lower thoracic spine - Pain mgt - Dr Garsia - VISHNU Blancas - PT Abn LFT, Pt is Hep C + - check Ferritin - Abd sono : negative - Check Hep C PCR RNA - d/c Hepatotoxic med ( ie:Flexeril) Pt has been on Mysoline and Pamelor for y ears
--- NOTE | 2018-09-10 11:03 | US ---
Date of service: 09/10/2018 HISTORY: elevated LFTs COMPARISON: 01/17/2017. Renal ultrasound TECHNIQUE: Sonographic evaluation of the right upper quadrant of the abdomen. FINDINGS: LIVER: Measures 14.9 cm in length. Patent portal vein. Portal venous flow: Hepatopetal. Unremarkable echogenicity of the liver parenchyma. No mass. No intrahepatic bile duct dilatation. GALLBLADDER: Status post cholecystectomy. No abnormality is seen in the gallbladder fossa. COMMON BILE DUCT: Measures 8.9 mm. No stones. No dilatation. PANCREAS: Unremarkable as visualized. No mass. No ductal dilatation. RIGHT KIDNEY: Measures 4.4 x 10.1 cm in length. Normal echogenicity. No calculus, mass, or hydronephrosis. Incidental finding(s): Sub cm cyst upper pole a stable finding. AORTA: No aneurysmal dilatation. IVC: Unremarkable. OTHER FINDINGS: None . IMPRESSION: No significant or acute findings to account for/ related to the clinical presentation. Additional benign and/or incidental findings described above. No significant interval change compared to the prior examination(s).
--- NOTE | 2018-09-10 11:52 | RAD ---
Date of service: 09/09/2018 HISTORY: Chest pain. COMPARISON: 01/11/2018. FINDINGS: LUNGS: Pulmonary vascular congestion. No focal infiltrates. PLEURA: No significant pleural effusion identified, no pneumothorax apparent. CARDIOVASCULAR: Atherosclerotic calcifications identified primarily aortic arch. Pulmonary vascular congestion more prominent on the present study. OSSEOUS STRUCTURES: No significant abnormalities. VISUALIZED UPPER ABDOMEN: Normal. OTHER FINDINGS: None. IMPRESSION: Pulmonary vascular congestion likely acute.
--- NOTE | 2018-09-10 14:49 | CT ---
PROCEDURE: CT Angiography Chest, Abdomen and Pelvis with and without intravenous contrast HISTORY: chest pain back pain COMPARISON: None. TECHNIQUE: Contiguous axial images of the chest, abdomen and pelvis were obtained in the phase of aortic enhancement. A noncontrast enhanced CT of the chest was also obtained to evaluate for possible intramural thrombus. Coronal and sagittal reformats were generated. IV dose administered: 85 mL Visipaque 320 Radiation dose: Total exam DLP = 720.8 mGy-cm. This CT exam was performed using one or more of the following dose reduction techniques: Automated exposure control, adjustment of the mA and/or kV according to patient size, and/or use of iterative reconstruction technique. FINDINGS: CT ANGIOGRAPHY OF THE CHEST WITH & WITHOUT CONTRAST: AORTA (CHEST AND ABDOMEN): The thoracic and abdominal aorta are unremarkable, without aneurysm, dissection or rupture. No intramural thrombus identified in the thoracic aorta on the non-contrast ct of the chest. The celiac axis, superior mesenteric artery, inferior mesenteric artery and the renal arteries are widely patent. The pelvic arteries are unremarkable. LUNGS: No acute infiltrate. There is nonspecific small airways disease in the anterior and posterior segments of the right upper lobe. There is linear pleural-based scar with calcification in the anterior segment left upper lobe, nonspecific. There is a calcified granuloma in the apical posterior segment of the left upper lobe. MEDIASTINUM: Small hiatal hernia. Normal caliber aorta and pulmonary arterial trunk. No aortic dissection. Normal size heart. LYMPH NODES: Unremarkable. PLEURA: Unremarkable. No pneumothorax. No pleural fluid. BONES: Mild compression deformity of the T12 vertebral body of indeterminate age. OTHER FINDINGS: None. CT ANGIOGRAPHY OF THE ABDOMEN AND PELVIS WITH CONTRAST: LIVER: Normal size, contour and attenuation. Multiple very small nonspecific low-attenuation lesions in both lobes of the liver. There is a larger low-attenuation mass in the medial segment of the left hepatic lobe adjacent to the fissure for the ligamentum teres measuring approximately 1.5 cm. Possible cyst. There is mild intrahepatic biliary dilatation predominantly centrally. The patient is status post cholecystectomy. GALLBLADDER AND BILE DUCTS: Status post cholecystectomy. Mild dilatation of the common bile duct up to 9 mm diameter, consistent with patient age and prior cholecystectomy. PANCREAS: Unremarkable. No gross lesion or ductal dilatation. SPLEEN: Unremarkable. ADRENALS: Unremarkable. No mass. KIDNEYS AND URETERS: 9 mm nonspecific low-attenuation mass upper pole right kidney, likely cyst. Multiple rounded low-attenuation masses in left kidney, likely cysts. The largest of these measures approximately 2.6 cm in diameter. No calculus or hydronephrosis. VASCULATURE: Unremarkable. No aortic aneurysm. There is atherosclerotic calcification of the abdominal aorta. STOMACH AND BOWEL: Small hiatal hernia. No bowel obstruction. Extensive sigmoid diverticulosis. There is quesada colonic diverticulosis noted to a lesser extent. There is mural thickening of the distal half of the transverse colon and of the splenic flexure and proximal descending colon, consistent with nonspecific colitis. APPENDIX: Not positively identified. PERITONEUM: Unremarkable. No free fluid. No free air. LYMPH NODES: Unremarkable. No enlarged lymph nodes. BLADDER: Unremarkable. 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 BONES: No acute fracture. OTHER FINDINGS: None. IMPRESSION: No evidence of thoracic or abdominal aortic dissection or aneurysm. Nonspecific colitis as above. Compression deformity of the T12 vertebra, age indeterminate. Additional minor findings as above.. The preliminary findings for this examination were reported by [facility] at 7:22 p.m. on 09/09/2018. There is discordance of this report with the preliminary findings. Nonspecific colitis was not described in the preliminary report of this examination.
[2018-09-10 17:05] LABS: HEPATITIS B SURFACE AG Negative (NEGATIVE)
[2018-09-10 17:10] LABS: HEPATITIS A IGM NEGATIVE (NEGATIVE); HEPATITIS B CORE AB NEGATIVE (NEGATIVE)
[2018-09-10 18:52] LABS: HEPATITIS C ANTIBODY Reactive (NEGATIVE)
[2018-09-10 19:16] LABS: BARBITURATES, UR NEGATIVE (NEGATIVE); OPIATES, UR NEGATIVE (NEGATIVE)
[2018-09-10 19:31] LABS: BENZODIAZEPINES, UR NEGATIVE (NEGATIVE); PHENCYCLIDINE, UR NEGATIVE (NEGATIVE)
[2018-09-11] MEDS: Potassium Chl 20 mEq in D5-NS 1,000 ML IV SCH ×3 (03:15→22:00)
[2018-09-11 06:47] LABS: ALBUMIN 2.8 g/dL (3.5-5.0); ALT/SGPT 186 U/L (9-52); AST/SGOT 148 U/L (14-36); BLOOD UREA NITROGEN 13 mg/dl (7-17); CALCIUM 8.2 mg/dL (8.4-10.2); GFR NON-AFRICAN AMERICAN > 60; HDL CHOLESTEROL 34 MG/DL (30-70)
[2018-09-11 06:53] LABS: LDL CHOLESTEROL 70 mg/dL (0-129)
--- NOTE | 2018-09-11 06:57 | CP.PCM.PN ---
<Sourav Roblero - Last Filed: 09/11/18 15:47> Subjective - Date & Time of Evaluation Date of Evaluation: 09/11/18 Time of Evaluation: 13:34 - Subjective Subjective: Pt seen and evaluated at bedside. Requests to go home. Denies pain at spine. Reports bilateral lumbar pain. Denies CP/SOB/N/V Pending eval from Dr. Garsia. Objective - Vital Signs/Intake and Output Vital Signs (last 24 hours): Temp Pulse Resp BP Pulse Ox 98.0 F 71 18 124/71 95 09/10/18 23:55 09/10/18 23:55 09/10/18 23:55 09/10/18 23:55 09/10/18 23:55 Intake and Output: 09/10/18 09/11/18 18:59 06:59 Intake Total 1680 Output Total 300 Balance 1380 - Medications Medications: Current Medications Aspirin (Aspirin Chewable) 81 mg PO DAILY [facility] Last Admin: 09/10/18 08:45 Dose: 81 mg Atenolol (Tenormin) 50 mg PO DAILY [facility] Last Admin: 09/10/18 08:55 Dose: 50 mg Enoxaparin Sodium (Lovenox) 40 mg SC DAILY [facility]; Protocol Last Admin: 09/10/18 08:51 Dose: Not Given Potassium Chloride/Dextrose/Sod Cl (Potassium Chl 20 Meq In D5-Ns) 1,000 mls @ 100 mls/hr IV .Q10H [facility] Last Admin: 09/11/18 06:41 Dose: Not Given Lorazepam (Ativan) 1 mg PO DAILY [facility] Last Admin: 09/10/18 08:47 Dose: 1 mg Morphine Sulfate (Morphine) 1 mg IVP Q6 PRN PRN Reason: Pain, severe (8-10) Naproxen (Naproxen) 500 mg PO Q12H [facility] Last Admin: 09/10/18 21:17 Dose: 500 mg Nitroglycerin (Nitrostat Sl Tab) 0.4 mg SL Q5M PRN PRN Reason: Other Nortriptyline HCl (Pamelor) 10 mg PO HS [facility] Last Admin: 09/10/18 21:22 Dose: 10 mg Nortriptyline HCl (Pamelor) 25 mg PO [facility] Last Admin: 09/10/18 21:19 Dose: 25 mg Pantoprazole Sodium (Protonix Ec Tab) 40 mg PO Q12 [facility] Last Admin: 09/10/18 21:17 Dose: 40 mg Primidone (Mysoline) 25 mg PO HS [facility] Last Admin: 09/10/18 21:18 Dose: 25 mg - Labs Labs: 09/10/18 04:40 09/11/18 05:40 - Constitutional Appears: Well, Non-toxic - Eye Exam Eye Exam: EOMI - Neck Exam Neck Exam: Full ROM - Respiratory Exam Respiratory Exam: Clear to Ausculation Bilateral, NORMAL BREATHING PATTERN. absent: Wheezes - Cardiovascular Exam Cardiovascular Exam: REGULAR RHYTHM, +S1, +S2 - GI/Abdominal Exam GI & Abdominal Exam: Soft, Normal Bowel Sounds. absent: Tenderness - Extremities Exam Extremities Exam: absent: Calf Tenderness - Neurological Exam Neurological Exam: Alert, Awake, CN II-XII Intact, Oriented x3 - Psychiatric Exam Psychiatric exam: Normal Affect, Normal Mood Assessment and Plan - Assessment and Plan (Free Text) Assessment: 88 yo female patient with PMH of HTN, GERD admitted for evaluation and management of chest pain, r/o ACS. Plan: Chest pain - r/o ACS; Could be 2/2 to chronic GERD - s/p asa and NTG sl - troponin x3 negative - EKG normal sinus rhythm - Cardiology: Dr. Bass: atypical chest pain with no evidence of acute coronary syndrome. Stable and allowed to return home. - Pantoprazole - Echo: EF 55-60%; mild-moderate pulmonary hypertension Degenerative disc disease - likely secondary to muscle strain, hx of heavy lifting - Lumbar CT: severe multilevel degenerative disc disease, no acute fractures - continue Naprosyn, morphine, lidoderm patches, and ultram - PT/OT: ambulation with cane - Physiatry: Dr. Garsia consulted - CTA: chest, abdo, pelvis: Compression deformity of T12 Transaminitis with history of Hep C -urine tox: neg -CMP levels improved -d/c flexeril: hepatotoxic agent -f/u hepatitis viral load Hypokalemia -resolved -s/p Kcl 20 meq with IVF History of HTN - controlled - continue home meds Peripheral neuropathy - controlled - continue home meds Hx of depression - controlled - continue home meds Prophylaxis - DVT: lovenox sc daily - GI: Protonix bid Case dw Dr. Sacha Roblero MD PGY2 <Mable Goncalves - Last Filed: 09/11/18 18:56> Objective - Vital Signs/Intake and Output Vital Signs (last 24 hours): Temp Pulse Resp BP Pulse Ox 98 F 64 20 127/72 95 09/11/18 16:32 09/11/18 16:32 09/11/18 16:32 09/11/18 16:32 09/11/18 16:32 - Medications Medications: Current Medications Aspirin (Aspirin Chewable) 81 mg PO DAILY [facility] Last Admin: 09/10/18 08:45 Dose: 81 mg Atenolol (Tenormin) 50 mg PO DAILY [facility] Last Admin: 09/11/18 08:54 Dose: 50 mg Enoxaparin Sodium (Lovenox) 40 mg SC DAILY [facility]; Protocol Last Admin: 09/11/18 08:53 Dose: Not Given Potassium Chloride/Dextrose/Sod Cl (Potassium Chl 20 Meq In D5-Ns) 1,000 mls @ 100 mls/hr IV .Q10H [facility] Last Admin: 09/11/18 06:41 Dose: Not Given Lidocaine (Lidoderm) 2 ea TD DAILY [facility] Last Admin: 09/11/18 15:42 Dose: 1 ea Lorazepam (Ativan) 1 mg PO DAILY [facility] Last Admin: 09/11/18 08:57 Dose: 1 mg Morphine Sulfate (Morphine) 1 mg IVP Q6 PRN PRN Reason: Pain, severe (8-10) Naproxen (Naproxen) 500 mg PO Q12H [facility] Last Admin: 09/11/18 08:53 Dose: 500 mg Nitroglycerin (Nitrostat Sl Tab) 0.4 mg SL Q5M PRN PRN Reason: Other Nortriptyline HCl (Pamelor) 10 mg PO HS [facility] Last Admin: 09/10/18 21:22 Dose: 10 mg Nortriptyline HCl (Pamelor) 25 mg PO HS [facility] Last Admin: 09/10/18 21:19 Dose: 25 mg Pantoprazole Sodium (Protonix Ec Tab) 40 mg PO Q12 [facility] Last Admin: 09/11/18 08:54 Dose: 40 mg Primidone (Mysoline) 25 mg PO HS [facility] Last Admin: 09/10/18 21:18 Dose: 25 mg - Labs Labs: 09/10/18 04:40 09/11/18 05:40 Attending/Attestation - Attestation I have personally seen and examined this patient.: Yes I have fully participated in the care of the patient.: Yes I have reviewed all pertinent clinical information, including history, physical exam and plan: Yes Notes (Text): Low Back Pain Pt continues to have back pain - will keep pt in the hospital for pain mgt, Pain Mgt specialist consulted - Dr Garsia MRI of spine to check acuity of T12 compression fracture. Dr Acosta consulted for poss Kyphoplasty TLSO Brace ordered for Compression deformity Lidoderm patch Morphine prn Ultram Chest Pain , resolved likely musculoskeletal Pain - pt had previous cardiac cath 2 yrs ago w/c was negative Abn LFT , history of stable Hepatitis C , increase in LFT prob sec to medications - d/c Flexeril w/c could be hepatotoxic breezy in combination with her Psych meds -LFT trending down
[2018-09-11 07:08] LABS: FERRITIN 97.4 ng/Ml (11.1-264.0)
--- NOTE | 2018-09-11 08:49 | CARD ---
APPROVED REPORT Date of service: 09/10/2018 EXAM: Two-dimensional and M-mode echocardiogram with Doppler and color Doppler. Other Information Quality : GoodRhythm : NSR INDICATION Chest Pain 2D DIMENSIONS IVSd1.03 (0.7-1.1cm)LVDd4.21 (3.9-5.9cm) LVOT Diameter2.12 (1.8-2.4cm)PWd0.82 (0.7-1.1cm) IVSs1.12 (0.8-1.2cm)LVDs3.18 (2.5-4.0cm) FS (%) 24.4 %PWs0.96 (0.8-1.2cm) M-Mode DIMENSIONS Left Atrium (MM)3.82 (2.5-4.0cm)IVSd0.38 (0.7-1.1cm) Aortic Root2.77 (2.2-3.7cm)LVDd5.59 (4.0-5.6cm) Aortic Cusp Exc.1.58 (1.5-2.0cm)PWd1.00 (0.7-1.1cm) IVSs0.72 cmFS (%) 32 % LVDs3.82 (2.0-3.8cm)PWs1.24 cm Aortic Valve AoV Peak Legkpkjn221.9cm/sAoV VTI31.1cmAO Peak GR.9mmHg LVOT Peak Uotehysm25.6cm/sLVOT VTI17.83cmAO Mean GR.5mmHg SACHA (VMAX)1.70sn7PAX (VTI)1.65pz6RB P 1/2 Jsya307wh Mitral Valve MV E Ylylzgfy39.2cm/sMV DECEL PSEU507byIB A Jvdlxvut44.4cm/s MV JYX52eyU/A ratio0.9MVA (PHT)3.59cm2 TDI Lateral E' Peak V8.56cm/sMedial E' Peak V5.79cm/sE/Lateral E'9.3 E/Medial E'13.7 Pulmonary Valve PV Peak Dxsgwlbz63.5cm/s Tricuspid Valve TR Peak Bptgxgga592cv/sRAP LAOKKCRB96bhIjUH Peak Gr.33mmHg FXLU14kfBf LEFT VENTRICLE The left ventricle is normal size. There is normal left ventricular wall thickness. The left ventricular function is normal. LVEF is 55-60%. There is normal LV segmental wall motion. Transmitral Doppler flow pattern is Grade I-abnormal relaxation pattern. RIGHT VENTRICLE The right ventricle is normal size. There is normal right ventricular wall thickness. The right ventricular systolic function is normal. ATRIA The left atrium size is normal. The right atrium size is normal. AORTIC VALVE The aortic valve is mildly sclerotic. There is mild aortic regurgitation. There is no aortic valvular stenosis. MITRAL VALVE The mitral valve is normal in structure. There is no evidence of mitral valve prolapse. There is no mitral valve stenosis. Mitral regurgitation is mild. TRICUSPID VALVE The tricuspid valve is normal in structure. There is moderate tricuspid regurgitation. Right ventricular systolic pressure is estimated at 43 mmHg. There is mild-moderate pulmonary hypertension. PULMONIC VALVE The pulmonary valve is normal in structure. There is no pulmonic valvular regurgitation. GREAT VESSELS The aortic root is normal in size. The IVC is normal in size and collapses >50% with inspiration. PERICARDIAL EFFUSION The pericardium appears normal. <Conclusion> The left ventricle is normal size. There is normal left ventricular wall thickness. The left ventricular function is normal. LVEF is 55-60%. There is normal LV segmental wall motion. Transmitral Doppler flow pattern is Grade I-abnormal relaxation pattern. There is mild-moderate pulmonary hypertension.
[2018-09-11] MEDS: Naproxen 500 MG TAB PO SCH ×2 (08:53→21:13)
[2018-09-11] MEDS: Enoxaparin 40 mg Syringe SC SCH (08:53)
[2018-09-11] MEDS: Pantoprazole 40 mg EC Tab PO SCH ×2 (08:54→21:14)
--- NOTE | 2018-09-11 11:59 | CP.PCM.PN ---
<Vipul Cortez - Last Filed: 09/11/18 11:55> Subjective - Date & Time of Evaluation Date of Evaluation: 09/11/18 Time of Evaluation: 11:55 - Subjective Subjective: Patient seen and examined at bedside this morning. There are no acute events overnight, NAD. Patient reports back pain persists. Patient denies dyspnea. Patient also reports constipation. Patient otherwise is clinically stable. Patient is pending IR evaluation for possible kyphoplasty to relieved pain from collapsed/compressed vertebra. Patient's LFTs have improved and most likely elevated due to previous flexeril use. Objective - Vital Signs/Intake and Output Vital Signs (last 24 hours): Temp Pulse Resp BP Pulse Ox 98.3 F 66 20 152/76 H 96 09/11/18 08:16 09/11/18 08:54 09/11/18 08:16 09/11/18 08:54 09/11/18 08:16 - Medications Medications: Current Medications Aspirin (Aspirin Chewable) 81 mg PO DAILY [facility] Last Admin: 09/10/18 08:45 Dose: 81 mg Atenolol (Tenormin) 50 mg PO DAILY [facility] Last Admin: 09/11/18 08:54 Dose: 50 mg Enoxaparin Sodium (Lovenox) 40 mg SC DAILY [facility]; Protocol Last Admin: 09/11/18 08:53 Dose: Not Given Potassium Chloride/Dextrose/Sod Cl (Potassium Chl 20 Meq In D5-Ns) 1,000 mls @ 100 mls/hr IV .Q10H [facility] Last Admin: 09/11/18 06:41 Dose: Not Given Lactulose (Enulose) 30 gm PO ONCE ONE Stop: 09/11/18 12:01 Lidocaine (Lidoderm) 2 ea TD DAILY [facility] Lorazepam (Ativan) 1 mg PO DAILY [facility] Last Admin: 09/11/18 08:57 Dose: 1 mg Morphine Sulfate (Morphine) 1 mg IVP Q6 PRN PRN Reason: Pain, severe (8-10) Naproxen (Naproxen) 500 mg PO Q12H [facility] Last Admin: 09/11/18 08:53 Dose: 500 mg Nitroglycerin (Nitrostat Sl Tab) 0.4 mg SL Q5M PRN PRN Reason: Other Nortriptyline HCl (Pamelor) 10 mg PO HS [facility] Last Admin: 09/10/18 21:22 Dose: 10 mg Nortriptyline HCl (Pamelor) 25 mg PO HS [facility] Last Admin: 09/10/18 21:19 Dose: 25 mg Pantoprazole Sodium (Protonix Ec Tab) 40 mg PO Q12 [facility] Last Admin: 09/11/18 08:54 Dose: 40 mg Primidone (Mysoline) 25 mg PO HS [facility] Last Admin: 09/10/18 21:18 Dose: 25 mg Tramadol HCl (Ultram) 25 mg PO ONCE ONE Stop: 09/11/18 12:46 - Labs Labs: 09/10/18 04:40 09/11/18 05:40 - Constitutional Appears: Non-toxic, No Acute Distress - Head Exam Head Exam: NORMAL INSPECTION - Eye Exam Eye Exam: Normal appearance - ENT Exam ENT Exam: Mucous Membranes Moist - Neck Exam Neck Exam: Full ROM. absent: Tenderness - Respiratory Exam Respiratory Exam: Clear to Ausculation Bilateral. absent: Decreased Breath Sounds, Rales, Rhonchi, Wheezes, Respiratory Distress - Cardiovascular Exam Cardiovascular Exam: REGULAR RHYTHM. absent: Tachycardia - GI/Abdominal Exam GI & Abdominal Exam: Soft, Normal Bowel Sounds. absent: Distended, Tenderness - Back Exam Back Exam: vertebral tenderness Additional comments: thoracolumbar tenderness w/ left and right paraspinal muscle spasm - Neurological Exam Neurological Exam: Alert, Awake, Oriented x3 - Skin Skin Exam: Dry, Normal Color, Warm Assessment and Plan (1) Back pain of thoracolumbar region Status: Acute (2) Elevated LFTs Status: Acute (3) Hepatitis C antibody positive in blood Status: Chronic - Assessment and Plan (Free Text) Assessment: 88 y/o woman w/ pmh of HTN, Depression, Peripheral Neuropathy, hep C is admitted for chest pain and constant back pain. Plan: - chest pain is resolved and ACS ruled out - LFTs also markedly decreased, most likely elevated due to previous flexeril use - Hep panel shows Hep C (chronic condition) - Hep C viral load pending - clinically stable - back pain persists - counseled to avoid tylenol, flexeril, and other hepatotoxic medications - pending IR evaluation for possible kyphoplasty - primary team also ordered TLSO back brace - stable for [place] home <Ricki Hobson - Last Filed: 09/18/18 10:02> Subjective - Subjective Subjective: The patient was seen and examined together with the residents on rounds. Physical exam was reviewed along with laboratory and radiology studies. Diagnosis was discussed and plan of care was formulated. The entry in the EMR made by the resident was accurate and agreed upon. Objective - Vital Signs/Intake and Output Vital Signs (last 24 hours): Temp Pulse Resp BP Pulse Ox 97.7 F 70 18 120/74 96 09/17/18 09:00 09/17/18 13:07 09/17/18 09:00 09/17/18 13:00 09/17/18 13:07 - Labs Labs: 09/15/18 05:30 09/15/18 05:30 PT 14.2 Seconds (9.8-13.1) H 09/13/18 05:40 INR 1.3 09/13/18 05:40 APTT 31.6 Seconds (25.6-37.1) 09/13/18 05:40 Assessment and Plan (1) Back pain of thoracolumbar region Status: Acute (2) Elevated LFTs Status: Acute (3) Hepatitis C antibody positive in blood Status: Chronic
[2018-09-11] MEDS ORDERED: Lactulose 10 gm/15 ml Syrup PO ONE (12:00)
[2018-09-11] MEDS: Lidocaine 5% Patch TD SCH ×2 (12:59→15:42)
--- NOTE | 2018-09-11 19:27 | CP.PCM.PN ---
Subjective - Date & Time of Evaluation Date of Evaluation: 09/11/18 Time of Evaluation: 19:26 - Subjective Subjective: Patient was not in room at MRI for scanning I will follow up tomorrow for initial evaluation. Objective - Vital Signs/Intake and Output Vital Signs (last 24 hours): Temp Pulse Resp BP Pulse Ox 98 F 64 20 127/72 95 09/11/18 16:32 09/11/18 16:32 09/11/18 16:32 09/11/18 16:32 09/11/18 16:32 - Medications Medications: Current Medications Aspirin (Aspirin Chewable) 81 mg PO DAILY [facility] Last Admin: 09/10/18 08:45 Dose: 81 mg Atenolol (Tenormin) 50 mg PO DAILY [facility] Last Admin: 09/11/18 08:54 Dose: 50 mg Enoxaparin Sodium (Lovenox) 40 mg SC DAILY [facility]; Protocol Last Admin: 09/11/18 08:53 Dose: Not Given Potassium Chloride/Dextrose/Sod Cl (Potassium Chl 20 Meq In D5-Ns) 1,000 mls @ 100 mls/hr IV .Q10H [facility] Last Admin: 09/11/18 06:41 Dose: Not Given Lidocaine (Lidoderm) 2 ea TD DAILY [facility] Last Admin: 09/11/18 15:42 Dose: 1 ea Lorazepam (Ativan) 1 mg PO DAILY [facility] Last Admin: 09/11/18 08:57 Dose: 1 mg Morphine Sulfate (Morphine) 1 mg IVP Q6 PRN PRN Reason: Pain, severe (8-10) Naproxen (Naproxen) 500 mg PO Q12H [facility] Last Admin: 09/11/18 08:53 Dose: 500 mg Nitroglycerin (Nitrostat Sl Tab) 0.4 mg SL Q5M PRN PRN Reason: Other Nortriptyline HCl (Pamelor) 10 mg PO HS [facility] Last Admin: 09/10/18 21:22 Dose: 10 mg Nortriptyline HCl (Pamelor) 25 mg PO HS [facility] Last Admin: 09/10/18 21:19 Dose: 25 mg Pantoprazole Sodium (Protonix Ec Tab) 40 mg PO Q12 [facility] Last Admin: 09/11/18 08:54 Dose: 40 mg Primidone (Mysoline) 25 mg PO HS [facility] Last Admin: 09/10/18 21:18 Dose: 25 mg - Labs Labs: 09/10/18 04:40 09/11/18 05:40
[2018-09-12] MEDS: Potassium Chl 20 mEq in D5-NS 1,000 ML IV SCH ×3 (02:30→22:30)
[2018-09-12 06:38] LABS: HEMOGLOBIN 12.9 g/dL (12.0-16.0); MEAN CORPUSCULAR HEMOGLOBIN 30.6 pg (27.0-31.0); MEAN CORPUSCULAR HGB CONC 34.4 g/dL (33.0-37.0); RBC 4.2 Mil/uL (3.80-5.20); RED CELL DISTRIBUTION WIDTH 13.3 % (11.5-14.5); WHITE BLOOD COUNT 6.9 K/uL (4.8-10.8)
[2018-09-12 06:41] LABS: BLOOD UREA NITROGEN 11 mg/dl (7-17); CALCIUM 8.7 mg/dL (8.4-10.2); GFR NON-AFRICAN AMERICAN > 60
[2018-09-12 08:57] LABS: ALBUMIN 3.3 g/dL (3.5-5.0); ALT/SGPT 141 U/L (9-52); AST/SGOT 93 U/L (14-36); BILIRUBIN,DIRECT 0.4 mg/ml (0.0-0.4)
[2018-09-12] MEDS: Lidocaine 5% Patch TD SCH (09:43)
[2018-09-12] MEDS: Pantoprazole 40 mg EC Tab PO SCH ×2 (09:44→21:30)
[2018-09-12] MEDS: Naproxen 500 MG TAB PO SCH (09:44)
[2018-09-12] MEDS: Enoxaparin 40 mg Syringe SC SCH (09:45)
--- NOTE | 2018-09-12 09:51 | CP.PCM.PN ---
<Sourav Roblero - Last Filed: 09/12/18 12:34> Subjective - Date & Time of Evaluation Date of Evaluation: 09/12/18 Time of Evaluation: 08:00 - Subjective Subjective: Pt seen and examined at bedside. Denied acute overnight events. Pt reports bilateral lumbar pain that hasnt significantly improved since adding lidoderm patch. MRI spine yesterday. Objective - Vital Signs/Intake and Output Vital Signs (last 24 hours): Temp Pulse Resp BP Pulse Ox 97.4 F L 66 20 153/72 H 97 09/12/18 09:00 09/12/18 09:44 09/12/18 09:00 09/12/18 09:44 09/12/18 09:00 - Medications Medications: Current Medications Aspirin (Aspirin Chewable) 81 mg PO DAILY [facility] Last Admin: 09/10/18 08:45 Dose: 81 mg Atenolol (Tenormin) 50 mg PO DAILY [facility] Last Admin: 09/12/18 09:44 Dose: 50 mg Enoxaparin Sodium (Lovenox) 40 mg SC DAILY [facility]; Protocol Last Admin: 09/12/18 09:45 Dose: 40 mg Potassium Chloride/Dextrose/Sod Cl (Potassium Chl 20 Meq In D5-Ns) 1,000 mls @ 100 mls/hr IV .Q10H [facility] Last Admin: 09/12/18 02:30 Dose: Not Given Lidocaine (Lidoderm) 2 ea TD DAILY [facility] Last Admin: 09/12/18 09:43 Dose: 2 ea Lorazepam (Ativan) 1 mg PO DAILY [facility] Last Admin: 09/11/18 08:57 Dose: 1 mg Morphine Sulfate (Morphine) 1 mg IVP Q6 PRN PRN Reason: Pain, severe (8-10) Naproxen (Naproxen) 500 mg PO Q12H [facility] Last Admin: 09/12/18 09:44 Dose: 500 mg Nitroglycerin (Nitrostat Sl Tab) 0.4 mg SL Q5M PRN PRN Reason: Other Nortriptyline HCl (Pamelor) 10 mg PO HS [facility] Last Admin: 09/11/18 21:08 Dose: 10 mg Nortriptyline HCl (Pamelor) 25 mg PO HS [facility] Last Admin: 09/11/18 21:08 Dose: 25 mg Pantoprazole Sodium (Protonix Ec Tab) 40 mg PO Q12 [facility] Last Admin: 09/12/18 09:44 Dose: 40 mg Primidone (Mysoline) 25 mg PO HS [facility] Last Admin: 09/11/18 21:14 Dose: 25 mg - Labs Labs: 09/12/18 05:35 09/12/18 05:35 - Constitutional Appears: Well, Non-toxic - Eye Exam Eye Exam: EOMI - ENT Exam ENT Exam: Mucous Membranes Moist - Neck Exam Neck Exam: Full ROM - Respiratory Exam Respiratory Exam: Clear to Ausculation Bilateral, NORMAL BREATHING PATTERN. absent: Wheezes - Cardiovascular Exam Cardiovascular Exam: REGULAR RHYTHM, +S1, +S2 - GI/Abdominal Exam GI & Abdominal Exam: Soft, Normal Bowel Sounds. absent: Tenderness - Neurological Exam Neurological Exam: Alert, Awake, CN II-XII Intact, Oriented x3 - Psychiatric Exam Psychiatric exam: Normal Affect, Normal Mood Assessment and Plan - Assessment and Plan (Free Text) Assessment: 88 yo female patient with PMH of HTN, GERD admitted for evaluation and management of chest pain and thoracic pain. Plan: T12 fracture - hx of heavy lifting - TLSO brace today - Lumbar CT: severe multilevel degenerative disc disease, no acute fractures - CTA: chest, abdo, pelvis: Compression deformity of T12 - MRI of thoracic and lumbar spine: pending offical report - continue: morphine, lidoderm patches, and ultram prn - PT/OT: ambulation with cane - Physiatry: Dr. Garsia consulted; pending eval - IR: Dr. Acosta: kyphoplasty on Monday. d/c asa, nsaids (Last dose of lovenox morning.) Transaminitis with history of Hep C -urine tox: neg -CMP: AST/ALT improving. Alk phos: increasing -d/c flexeril: hepatotoxic agent -f/u hepatitis viral load Chest pain - r/o ACS; Could be 2/2 to chronic GERD - s/p asa and NTG sl - troponin x3 negative - EKG normal sinus rhythm - Cardiology: Dr. Bass: atypical chest pain with no evidence of acute coronary syndrome. Stable and allowed to return home. - Pantoprazole - Echo: EF 55-60%; mild-moderate pulmonary hypertension History of HTN - continue home meds Peripheral neuropathy - controlled - continue home meds Hx of depression - controlled - continue home meds Prophylaxis - DVT: lovenox sc daily (Last dose of lovenox morning.) - GI: Protonix bid Case dw Dr. Sacha Roblero MD PGY2 <Mable Goncalves - Last Filed: 09/12/18 15:03> Objective - Vital Signs/Intake and Output Vital Signs (last 24 hours): Temp Pulse Resp BP Pulse Ox 97.4 F L 66 20 153/72 H 97 09/12/18 09:00 09/12/18 09:44 09/12/18 09:00 09/12/18 09:44 09/12/18 09:00 - Medications Medications: Current Medications Atenolol (Tenormin) 50 mg PO DAILY [facility] Last Admin: 09/12/18 09:44 Dose: 50 mg Potassium Chloride/Dextrose/Sod Cl (Potassium Chl 20 Meq In D5-Ns) 1,000 mls @ 100 mls/hr IV .Q10H [facility] Last Admin: 09/12/18 02:30 Dose: Not Given Lidocaine (Lidoderm) 2 ea TD DAILY [facility] Last Admin: 09/12/18 09:43 Dose: 2 ea Lorazepam (Ativan) 1 mg PO DAILY [facility] Last Admin: 09/12/18 10:01 Dose: 1 mg Morphine Sulfate (Morphine) 1 mg IVP Q6 PRN PRN Reason: Pain, severe (8-10) Nitroglycerin (Nitrostat Sl Tab) 0.4 mg SL Q5M PRN PRN Reason: Other Nortriptyline HCl (Pamelor) 10 mg PO HS [facility] Last Admin: 09/11/18 21:08 Dose: 10 mg Nortriptyline HCl (Pamelor) 25 mg PO HS [facility] Last Admin: 09/11/18 21:08 Dose: 25 mg Pantoprazole Sodium (Protonix Ec Tab) 40 mg PO Q12 [facility] Last Admin: 09/12/18 09:44 Dose: 40 mg Primidone (Mysoline) 25 mg PO HS [facility] Last Admin: 09/11/18 21:14 Dose: 25 mg - Labs Labs: 09/12/18 05:35 09/12/18 05:35 Attending/Attestation - Attestation I have personally seen and examined this patient.: Yes I have fully participated in the care of the patient.: Yes I have reviewed all pertinent clinical information, including history, physical exam and plan: Yes Notes (Text): Low Back Pain sec to Acute T12 Spine Compression Fracture - Pain mgt - Plan for Kyphoplasty on Monday to be done by IR Dr Acosta ( pt had ASA 81 mg on Monday), no NSAIDs for now -Hold Lovenox Monday Chest Pain , resolved likely musculoskeletal Pain, ACS ruled out - pt had previous cardiac cath 2 yrs ago w/c was negative Abn LFT , history of stable Hepatitis C , increase in LFT prob sec to medications - d/c Flexeril w/c could be hepatotoxic breezy in combination with her Psych meds -LFT trending down
--- NOTE | 2018-09-12 12:05 | MRI ---
Date of service: 09/11/2018 PROCEDURE: MR LUMBAR SPINE WITHOUT CONTRAST HISTORY: low back pain T12 compression fracture on CT spine COMPARISON: CT lumbar spine from 09/09/2018. TECHNIQUE: Multiecho multiplanar sequences were performed through the lumbar spine without the use of intravenous contrast. FINDINGS: There is degenerative 3 mm anterior listhesis of L4 on L2. There is normal lumbar lordosis. There is no acute fracture or spondylolysis. There are advanced multilevel degenerate endplate marrow changes, worse at L3-4. The conus medullaris terminates at a normal level and the nerve roots of cauda equina are normal. T12-L1: No disc herniation, spinal canal stenosis or neural foraminal narrowing. L1-2: Mild posterior disc bulge without, spinal canal stenosis or neural foraminal narrowing. L2-3: Diffuse posterior disc bulge and mild ligamentum flavum infolding without central spinal canal stenosis. Moderate right and mild left facet arthropathy contribute to moderate this right and severe left neural foraminal narrowing. L3-4: Diffuse posterior disc bulge without central spinal canal stenosis. Moderate bilateral facet arthropathy contribute to moderate right and severe left neural foraminal narrowing. L4-5: Diffuse posterior disc bulge and moderate ligamentum flavum infolding with resultant mild spinal canal stenosis. Also noted is superimposed right foraminal and far lateral disc protrusion which likely impinge on the exiting right L4 nerve root. Severe right and moderate left facet arthropathy contribute to severe right and moderate left neural foraminal narrowing. L5-S1: Diffuse posterior disc bulge without central spinal canal stenosis. Mild bilateral facet arthropathy contribute to moderate right and mild left neural foraminal narrowing. OTHER FINDINGS: The paraspinous soft tissues are normal. Incompletely imaged and characterized are cortical cysts in the left kidney. IMPRESSION: No acute fracture in the lumbar spine. No spondylolysis. Multilevel degenerative disc disease, worse at L4-5 with mild spinal canal stenosis, severe right and moderate left neural foraminal narrowing. Also noted is superimposed right foraminal and far lateral disc protrusion which impinges on the exiting right L4 nerve root. Incompletely imaged left renal cortical cysts. A preliminary report was provided by [email or web address].
--- NOTE | 2018-09-12 12:34 | MRI ---
Date of service: 09/11/2018 PROCEDURE: MR THORACIC SPINE WITHOUT CONTRAST HISTORY: compression deformity Thoracic 12 COMPARISON: CT lumbar spine from 09/09/2018. TECHNIQUE: Multiecho multiplanar sequences were performed through the thoracic spine without the use of intravenous contrast. FINDINGS: ALIGNMENT: There is normal alignment of the thoracic vertebral bodies. There is straightening of the thoracic spine with loss of normal thoracic kyphosis. VERTEBRA: There is an acute compression fracture in the T12 vertebral body with approximately 50 percent loss of central vertebral height. No retropulsion. There is associated bone marrow edema/contusion in the T12 vertebral body. The remaining vertebral body heights are maintained. MARROW: There are multilevel degenerative endplate marrow changes in the thoracic spine, worse at T8-9. Otherwise, bone marrow signal is within normal limits. PARASPINAL SOFT TISSUES: Paraspinous soft tissues are normal. CORD: The thoracic cord is normal in contour, caliber and has normal intrinsic signal. DISCS: There is mild multilevel degenerative disc disease, worse at T12-L1 with a right paracentral disc protrusion without central spinal canal stenosis. OTHER FINDINGS: None. IMPRESSION: Acute compression fracture in the T12 vertebral body with approximately 50 percent loss of vertebral height without retropulsion or spinal canal stenosis. No cord compression. Additional comments as described above. A preliminary report was provided by [facility].
--- NOTE | 2018-09-12 15:00 | PQF ---
PROVIDER RESPONSE TEXT: Chest Pain, ACS rule out, pain likely musculoskeletal REVIEWER QUERY TEXT: Clarification of Clinical Diagnostic Findings Please clarify the possible etiology of Chest Pain if known after the work up is completed: i.e. Musc uloskeletal versus GERD:chronic etc. --OR: other explanation of clinical finding 09/11 Attending progress note includes: Chest Pain , resolved likely musculoskeletal Pain 09/12 ISigned Resident progress note: Chest pain - r/o ACS; Could be 2/2 to chronic GERD - s/p asa and NTG sl - troponin x3 negative - EKG normal sinus rhythm - Cardiology: Dr. Bass: atypical chest pain with no evidence of acute coronary syndrome. Stable and allowed to return home. - Pantoprazole The patient's Clinical Indicators include: -- Query created by: Gabby Simon on 09/12/2018 1:42 PM Electronically signed by: Mable Goncalves MD 09/12/2018 2:57 PM
--- NOTE | 2018-09-12 15:00 | PQF ---
PROVIDER RESPONSE TEXT: Depression/Anxiety, mild REVIEWER QUERY TEXT: Depression Type Depression is documented in the Medical Record. Please specify the type if known: i.e. Such as: -- Agitated depression -- Anxiety depression, mild or not persistent -- Anxiety depression, persistent -- Hysterical depression -- Major depression (Please specify severity - mild, moderate, severe) -- Bipolar depression -- Reactive -- Situational / Grief reaction -- Other, please specify 09/12 Resident ISigned progress note: dxs. include; Hx of depression - controlled - continue home me ds The patient's Clinical Indicators include: -- Query created by: Gabby Simon on 09/12/2018 2:18 PM Electronically signed by: Mable Goncalves MD 09/12/2018 2:57 PM
--- NOTE | 2018-09-12 17:05 | CP.PCM.PN ---
Subjective - Date & Time of Evaluation Date of Evaluation: 09/12/18 Time of Evaluation: 11:20 - Subjective Subjective: Patient was observed lying in bed asleep, easily awakened. Still complained of significant back pain upon moving in the bed. Vital signs remained stable, no complaint of shortness of breath. MRI results were reviewed and discussed with the patient. Options for management were discussed including interventional radiology for potential kyphoplasty. Patient appears to be agreeable with the current plan. Discussed findings with the hospitalist as well. Explained current diagnosis and plan of management with her daughter. Objective - Vital Signs/Intake and Output Vital Signs (last 24 hours): Temp Pulse Resp BP Pulse Ox 98 F 78 18 153/72 H 95 09/12/18 16:28 09/12/18 16:28 09/12/18 16:28 09/12/18 09:44 09/12/18 16:28 - Medications Medications: Current Medications Atenolol (Tenormin) 50 mg PO DAILY [facility] Last Admin: 09/12/18 09:44 Dose: 50 mg Potassium Chloride/Dextrose/Sod Cl (Potassium Chl 20 Meq In D5-Ns) 1,000 mls @ 100 mls/hr IV .Q10H [facility] Last Admin: 09/12/18 02:30 Dose: Not Given Lidocaine (Lidoderm) 2 ea TD DAILY [facility] Last Admin: 09/12/18 09:43 Dose: 2 ea Lorazepam (Ativan) 1 mg PO DAILY [facility] Last Admin: 09/12/18 10:01 Dose: 1 mg Morphine Sulfate (Morphine) 1 mg IVP Q6 PRN PRN Reason: Pain, severe (8-10) Nitroglycerin (Nitrostat Sl Tab) 0.4 mg SL Q5M PRN PRN Reason: Other Nortriptyline HCl (Pamelor) 10 mg PO HS [facility] Last Admin: 09/11/18 21:08 Dose: 10 mg Nortriptyline HCl (Pamelor) 25 mg PO HS [facility] Last Admin: 09/11/18 21:08 Dose: 25 mg Pantoprazole Sodium (Protonix Ec Tab) 40 mg PO Q12 [facility] Last Admin: 09/12/18 09:44 Dose: 40 mg Primidone (Mysoline) 25 mg PO HS [facility] Last Admin: 09/11/18 21:14 Dose: 25 mg - Labs Labs: 09/12/18 05:35 09/12/18 05:35 Assessment and Plan (1) Back pain of thoracolumbar region Status: Acute (2) Elevated LFTs Status: Acute (3) Hepatitis C antibody positive in blood Status: Chronic
--- NOTE | 2018-09-12 18:26 | CP.PCM.CON ---
History of Present Illness - History of Present Illness History of Present Illness: Dr Garsia PMR consultation on Renee Duncan, born 1930 who has been admitted to [facility] for acute pain in the back and difficulty with ambulation. She was diagnosed on MRI with an acute T12 compression fracture. There is also si gnificant central stenosis at the T9 level and also the L4/5 level with L4 nerve root impingement. She notes foot numbness and difficulty in gait over the last few months which acute worsened when trying to lift a garage door. There is no retropulsion of the compression fracture. There is a plan for kyphoplasty which is an appropriate treatment at this point. She is comfortable at rest with no significant neurological radicular features. She has good strength in the lower extremities and can bend at the hips well without provoking symptoms. I stare discussed this in great detail with both Renee and her daughter and even showed her the MRI abnormality and explained treatment options. She is otherwise independent. 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 - ENDOCRINE/METABOLIC Hx Endocrine Disorders: No - HEMATOLOGICAL/ONCOLOGICAL Hx AIDS: No Hx Human Immunodeficiency Virus (HIV): No - INTEGUMENTARY Hx Dermatological Problems: No - MUSCULOSKELETAL/RHEUMATOLOGICAL Hx Musculoskeletal Disorders: Yes Hx Arthritis: Yes Hx Back Pain: Yes Hx Falls: Yes (slipped on ice in the past) - GASTROINTESTINAL Hx Gastrointestinal Disorders: Yes Hx Gastroesophageal Reflux: Yes Other/Comment: heartburn on medication for it - GENITOURINARY/GYNECOLOGICAL Hx Genitourinary Disorders: Yes Other/Comment: occasional incontinence, wears pads - PSYCHIATRIC Hx Depression: Yes - SURGICAL HISTORY Hx Appendectomy: Yes Hx Cholecystectomy: Yes - ANESTHESIA Hx Anesthesia: Yes Hx Anesthesia Reactions: No Meds Home Medications: Home Medication List Medication Instructions Recorded Confirmed Type Aspirin [Aspirin Chewable] 81 mg PO DAILY chew 09/11/18 Rx Lidocaine 5% [Lidoderm] 2 ea TD DAILY #60 patch 09/11/18 Rx Naproxen 500 mg PO DAILY PRN tab 09/11/18 Rx Allergies/Adverse Reactions: Allergies Allergy/AdvReac Type Severity Reaction Status Date / Time Diazepam Allergy FATIGUE Uncoded 04/10/18 08:06 - Medications Medications: Current Medications Atenolol (Tenormin) 50 mg PO DAILY [facility] Last Admin: 09/12/18 09:44 Dose: 50 mg Potassium Chloride/Dextrose/Sod Cl (Potassium Chl 20 Meq In D5-Ns) 1,000 mls @ 100 mls/hr IV .Q10H [facility] Last Admin: 09/12/18 02:30 Dose: Not Given Lidocaine (Lidoderm) 2 ea TD DAILY [facility] Last Admin: 09/12/18 09:43 Dose: 2 ea Lorazepam (Ativan) 1 mg PO DAILY [facility] Last Admin: 09/12/18 10:01 Dose: 1 mg Morphine Sulfate (Morphine) 1 mg IVP Q6 PRN PRN Reason: Pain, severe (8-10) Nitroglycerin (Nitrostat Sl Tab) 0.4 mg SL Q5M PRN PRN Reason: Other Nortriptyline HCl (Pamelor) 10 mg PO HS [facility] Last Admin: 09/11/18 21:08 Dose: 10 mg Nortriptyline HCl (Pamelor) 25 mg PO HS [facility] Last Admin: 09/11/18 21:08 Dose: 25 mg Pantoprazole Sodium (Protonix Ec Tab) 40 mg PO Q12 [facility] Last Admin: 09/12/18 09:44 Dose: 40 mg Primidone (Mysoline) 25 mg PO HS [facility] Last Admin: 09/11/18 21:14 Dose: 25 mg Results - Vital Signs Recent Vital Signs: Last Vital Signs Temp 98 F 09/12/18 16:28 Pulse 78 09/12/18 16:28 Resp 18 09/12/18 16:28 BP 153/72 H 09/12/18 09:44 Pulse Ox 95 09/12/18 16:28 - Labs Result Diagrams: 09/12/18 05:35 09/12/18 05:35 Labs: Laboratory Results - last 24 hr 09/10/18 09/11/18 09/12/18 12:40 15:00 05:35 WBC 6.9 RBC 4.20 Hgb 12.9 Hct 37.4 MCV 89.0 MCH 30.6 MCHC 34.4 RDW 13.3 Plt Count 238 Sodium Potassium Chloride Carbon Dioxide Anion Gap BUN Creatinine Est GFR ( Amer) Est GFR (Non-Af Amer) Random Glucose Calcium Total Bilirubin Direct Bilirubin AST ALT Alkaline Phosphatase Total Protein Albumin Globulin Albumin/Globulin Ratio Stool Occult Blood Negative TB Test (QFT) Nil 0.82 TB Test Mitogen - Nil 5.55 TB Test TB - Nil 0.08 TB Test (QFT) Negative 09/12/18 05:35 WBC RBC Hgb Hct MCV MCH MCHC RDW Plt Count Sodium 140 Potassium 3.8 Chloride 107 Carbon Dioxide 28 Anion Gap 9 L BUN 11 Creatinine 0.7 Est GFR ( Amer) > 60 Est GFR (Non-Af Amer) > 60 Random Glucose 98 Calcium 8.7 Total Bilirubin 0.7 Direct Bilirubin 0.4 AST 93 H D ALT 141 H D Alkaline Phosphatase 168 H Total Protein 6.8 Albumin 3.3 L Globulin 3.5 Albumin/Globulin Ratio 1.0 Stool Occult Blood TB Test (QFT) Nil TB Test Mitogen - Nil TB Test TB - Nil TB Test (QFT)
[2018-09-13 06:09] LABS: HEMOGLOBIN 12.4 g/dL (12.0-16.0); MEAN CELL VOLUME 89.5 fl (81.0-99.0); MEAN CORPUSCULAR HEMOGLOBIN 30.3 pg (27.0-31.0); MEAN CORPUSCULAR HGB CONC 33.8 g/dL (33.0-37.0); RBC 4.1 Mil/uL (3.80-5.20); RED CELL DISTRIBUTION WIDTH 13.3 % (11.5-14.5)
[2018-09-13 06:13] LABS: INR 1.3; PROTHROMBIN TIME 14.2 Seconds (9.8-13.1)
[2018-09-13 06:16] LABS: PARTIAL THROMBOPLASTIN TIME 31.6 Seconds (25.6-37.1)
[2018-09-13 06:46] LABS: ALBUMIN 3.3 g/dL (3.5-5.0); ALT/SGPT 105 U/L (9-52); AST/SGOT 44 U/L (14-36); BLOOD UREA NITROGEN 13 mg/dl (7-17); CALCIUM 8.7 mg/dL (8.4-10.2); GFR NON-AFRICAN AMERICAN > 60
[2018-09-13] MEDS ORDERED: Enoxaparin 40 mg Syringe SC ONE (09:00)
[2018-09-13] MEDS: Pantoprazole 40 mg EC Tab PO SCH ×2 (09:21→22:15)
[2018-09-13] MEDS: Lidocaine 5% Patch TD SCH (09:22)
[2018-09-13] MEDS: Potassium Chl 20 mEq in D5-NS 1,000 ML IV SCH (09:35)
--- NOTE | 2018-09-13 14:44 | CP.PCM.PN ---
<Sourav Roblero - Last Filed: 09/13/18 16:51> Subjective - Date & Time of Evaluation Date of Evaluation: 09/13/18 Time of Evaluation: 07:45 - Subjective Subjective: Pt seen and examined at bedside. Denies acute events overnight. Curious about specifics for tomorrow's kyphoplasty. Tolerating PO diet. Afebrile. Has TLSO brace. Objective - Vital Signs/Intake and Output Vital Signs (last 24 hours): Temp Pulse Resp BP Pulse Ox 98.1 F 63 20 173/73 H 97 09/13/18 08:33 09/13/18 09:21 09/13/18 08:33 09/13/18 09:21 09/13/18 08:33 - Medications Medications: Current Medications Atenolol (Tenormin) 50 mg PO DAILY [facility] Last Admin: 09/13/18 09:21 Dose: 50 mg Potassium Chloride/Dextrose/Sod Cl (Potassium Chl 20 Meq In D5-Ns) 1,000 mls @ 100 mls/hr IV .Q10H [facility] Last Admin: 09/13/18 09:35 Dose: Not Given Lidocaine (Lidoderm) 2 ea TD DAILY [facility] Last Admin: 09/13/18 09:22 Dose: 2 ea Lorazepam (Ativan) 1 mg PO DAILY [facility] Last Admin: 09/13/18 09:34 Dose: 1 mg Morphine Sulfate (Morphine) 1 mg IVP Q6 PRN PRN Reason: Pain, severe (8-10) Nitroglycerin (Nitrostat Sl Tab) 0.4 mg SL Q5M PRN PRN Reason: Other Nortriptyline HCl (Pamelor) 10 mg PO HS [facility] Last Admin: 09/12/18 22:40 Dose: 10 mg Nortriptyline HCl (Pamelor) 25 mg PO HS [facility] Last Admin: 09/12/18 22:40 Dose: 25 mg Pantoprazole Sodium (Protonix Ec Tab) 40 mg PO Q12 [facility] Last Admin: 09/13/18 09:21 Dose: 40 mg Primidone (Mysoline) 25 mg PO HS [facility] Last Admin: 09/12/18 22:41 Dose: 25 mg - Labs Labs: 09/13/18 05:40 09/13/18 05:35 PT 14.2 Seconds (9.8-13.1) H 09/13/18 05:40 INR 1.3 09/13/18 05:40 APTT 31.6 Seconds (25.6-37.1) 09/13/18 05:40 - Constitutional Appears: Well, Non-toxic - Eye Exam Eye Exam: EOMI - ENT Exam ENT Exam: Mucous Membranes Moist - Respiratory Exam Respiratory Exam: Clear to Ausculation Bilateral, NORMAL BREATHING PATTERN. absent: Wheezes - Cardiovascular Exam Cardiovascular Exam: REGULAR RHYTHM, +S1, +S2 - GI/Abdominal Exam GI & Abdominal Exam: Soft, Normal Bowel Sounds. absent: Tenderness - Neurological Exam Neurological Exam: Alert, Awake, CN II-XII Intact, Oriented x3 - Psychiatric Exam Psychiatric exam: Normal Affect, Normal Mood Assessment and Plan - Assessment and Plan (Free Text) Assessment: 88 yo female patient with PMH of HTN, GERD admitted for evaluation and management of chest pain and thoracic pain 2/2 T12 fracture. Plan: T12 fracture - hx of heavy lifting - TLSO brace with PT - Lumbar CT: severe multilevel degenerative disc disease, no acute fractures - CTA: chest, abdo, pelvis: Compression deformity of T12 - MRI of thoracic and lumbar spine: Acute compression fracture in the T12 vertebral body with approx. 50% loss of vertebral height without retropulsion or spinal canal stensosis. NO cord compression. No acute fracture in lumbar spine; multilevel degenerative disc disease. - continue: morphine, lidoderm patches, and ultram prn - PT/OT: ambulation with cane - Physiatry: Dr. Garsia - IR: Dr. Acosta: kyphoplasty on Monday. d/c asa, nsaids (Last dose of lovenox morning.) -Pt medically optimized for kyphoplasty Transaminitis with history of Hep C -urine tox: neg -CMP: AST/ALT improving. -d/c flexeril: hepatotoxic agent -f/u hepatitis viral load -Dr. Hobson consulted Chest pain - r/o ACS; Could be 2/2 to chronic GERD - s/p asa and NTG sl - troponin x3 negative - EKG normal sinus rhythm - Cardiology: Dr. Bass: atypical chest pain with no evidence of acute coronary syndrome. Stable and allowed to return home. - Pantoprazole - Echo: EF 55-60%; mild-moderate pulmonary hypertension History of HTN - Atenolol increased to 100 mg PO qDaily Peripheral neuropathy - controlled - continue home meds Hx of depression - controlled - continue home meds Prophylaxis - DVT: lovenox sc daily (Last dose of lovenox morning.) - GI: Protonix bid Case dw Dr. Kam Roblero MD PGY2 <Moris Humphrey D - Last Filed: 09/13/18 19:27> Objective - Vital Signs/Intake and Output Vital Signs (last 24 hours): Temp Pulse Resp BP Pulse Ox 98.1 F 79 20 158/70 H 96 09/13/18 16:37 09/13/18 16:37 09/13/18 16:37 09/13/18 16:37 09/13/18 16:37 - Medications Medications: Current Medications Atenolol (Atenolol) 100 mg PO DAILY [facility] Lidocaine (Lidoderm) 2 ea TD DAILY [facility] Last Admin: 09/13/18 09:22 Dose: 2 ea Lorazepam (Ativan) 1 mg PO DAILY [facility] Last Admin: 09/13/18 09:34 Dose: 1 mg Morphine Sulfate (Morphine) 1 mg IVP Q6 PRN PRN Reason: Pain, severe (8-10) Nitroglycerin (Nitrostat Sl Tab) 0.4 mg SL Q5M PRN PRN Reason: Other Nortriptyline HCl (Pamelor) 10 mg PO HS [facility] Last Admin: 09/12/18 22:40 Dose: 10 mg Nortriptyline HCl (Pamelor) 25 mg PO HS [facility] Last Admin: 09/12/18 22:40 Dose: 25 mg Pantoprazole Sodium (Protonix Ec Tab) 40 mg PO Q12 [facility] Last Admin: 09/13/18 09:21 Dose: 40 mg Primidone (Mysoline) 25 mg PO HS [facility] Last Admin: 09/12/18 22:41 Dose: 25 mg - Labs Labs: 09/13/18 05:40 09/13/18 05:35 PT 14.2 Seconds (9.8-13.1) H 09/13/18 05:40 INR 1.3 09/13/18 05:40 APTT 31.6 Seconds (25.6-37.1) 09/13/18 05:40 Attending/Attestation - Attestation I have personally seen and examined this patient.: Yes I have fully participated in the care of the patient.: Yes I have reviewed all pertinent clinical information, including history, physical exam and plan: Yes Notes (Text): 09/13/18 19:26 Patient seen and examined with resident. Case discussed and agreed with assessment. For IR kyphoplasty tomorrow.
--- NOTE | 2018-09-13 17:04 | CP.PCM.PN ---
Subjective - Date & Time of Evaluation Date of Evaluation: 09/13/18 Time of Evaluation: 17:02 - Subjective Subjective: Patient seen in the room in good spirits no pain at rest in bed set for kyphoplasty tomorrow reportedly at 8am Will hopefully have good improvement in pain and function and get PT. Likely would be good candidate for [address] [id number] [phone] TCU at that point to help with continued functional gains and pain management. Objective - Vital Signs/Intake and Output Vital Signs (last 24 hours): Temp Pulse Resp BP Pulse Ox 98.1 F 79 20 158/70 H 96 09/13/18 16:37 09/13/18 16:37 09/13/18 16:37 09/13/18 16:37 09/13/18 16:37 - Medications Medications: Current Medications Atenolol (Atenolol) 100 mg PO DAILY [facility] Lidocaine (Lidoderm) 2 ea TD DAILY [facility] Last Admin: 09/13/18 09:22 Dose: 2 ea Lorazepam (Ativan) 1 mg PO DAILY [facility] Last Admin: 09/13/18 09:34 Dose: 1 mg Morphine Sulfate (Morphine) 1 mg IVP Q6 PRN PRN Reason: Pain, severe (8-10) Nitroglycerin (Nitrostat Sl Tab) 0.4 mg SL Q5M PRN PRN Reason: Other Nortriptyline HCl (Pamelor) 10 mg PO HS [facility] Last Admin: 09/12/18 22:40 Dose: 10 mg Nortriptyline HCl (Pamelor) 25 mg PO HS [facility] Last Admin: 09/12/18 22:40 Dose: 25 mg Pantoprazole Sodium (Protonix Ec Tab) 40 mg PO Q12 [facility] Last Admin: 09/13/18 09:21 Dose: 40 mg Primidone (Mysoline) 25 mg PO HS [facility] Last Admin: 09/12/18 22:41 Dose: 25 mg - Labs Labs: 09/13/18 05:40 09/13/18 05:35 PT 14.2 Seconds (9.8-13.1) H 09/13/18 05:40 INR 1.3 09/13/18 05:40 APTT 31.6 Seconds (25.6-37.1) 09/13/18 05:40
[2018-09-14 06:26] LABS: HEMOGLOBIN 12.3 g/dL (12.0-16.0); MEAN CELL VOLUME 88.5 fl (81.0-99.0); MEAN CORPUSCULAR HEMOGLOBIN 29.8 pg (27.0-31.0); MEAN CORPUSCULAR HGB CONC 33.7 g/dL (33.0-37.0); RBC 4.12 Mil/uL (3.80-5.20); RED CELL DISTRIBUTION WIDTH 13.1 % (11.5-14.5); WHITE BLOOD COUNT 6.8 K/uL (4.8-10.8)
[2018-09-14 06:37] LABS: ALB/GLOB RATIO 0.9 (1.0-2.1); ALBUMIN 3.2 g/dL (3.5-5.0); ALT/SGPT 76 U/L (9-52); AST/SGOT 30 U/L (14-36); BLOOD UREA NITROGEN 12 mg/dl (7-17); CALCIUM 8.9 mg/dL (8.4-10.2); GFR NON-AFRICAN AMERICAN > 60
[2018-09-14] MEDS ORDERED: Lidocaine 1% Inj (20ml) ONE ×2 (07:14→07:15)
[2018-09-14] MEDS ORDERED: Midazolam 2 MG/2 ML VIAL ONE (08:03)
[2018-09-14] MEDS ORDERED: Succinylcholine 200 mg/10 ml Inj IV ONE (08:04)
[2018-09-14] MEDS ORDERED: Etomidate 20 mg/10ml Inj IV ONE (08:04)
[2018-09-14] MEDS: Pantoprazole 40 mg EC Tab PO SCH ×2 (08:27→22:04)
[2018-09-14] MEDS: ATENOLOL 100 MG TAB PO SCH ×2 (08:27→11:35)
[2018-09-14] MEDS: Lidocaine 5% Patch TD SCH ×2 (08:27→11:53)
[2018-09-14] MEDS ORDERED: Iodixanol 320 MG/ML 100 ML BOTTLE IV ONE (08:32)
[2018-09-14] MEDS ORDERED: ePHEDrine 50 mg/ml Inj ONE (08:44)
--- NOTE | 2018-09-14 09:01 | PCM.SURG1 ---
Surgeon's Initial Post Op Note - Surgeon's Notes Surgeon: Conrad Acosta MD Pelt Salter: NONE Type of Anesthesia: IV Sedation Pre-Operative Diagnosis: T12 compression fracture, back pain Operative Findings: intraoperative xray showed compression fracture vertebral body. Post-Operative Diagnosis: T12 compression fracture Operation Performed: KYphoplasty, Specimen/Specimens Removed: none Estimated Blood Loss: EBL {In ML}: 5 Blood Products Given: N/A Drains Used: No Drains Post-Op Condition: Fair Date of Surgery/Procedure: 09/14/18 Time of Surgery/Procedure: 09:00
--- NOTE | 2018-09-14 10:57 | VASCULAR ---
PROCEDURE: Date of Procedure: 09/14/2018 PROCEDURE: 1. Kyphoplasty T12 vertebral body Medications: Pt received general anesthesia administered by the anesthesiologist along with physiologic monitoring, 8 cc 1% lidocaine. HISTORY: Acute compression fracture T12, back pain. TECHNIQUE: Following informed consent and procedure time out, the patient was placed prone on the interventional table. The mid back was prepped and draped in the standard sterile manner. The fractured T12 vertebral body was confirmed on tangential views, AP and lateral. The T12 vertebral body had a 50% loss of height. Kyphoplasty was performed. A coaxial trocar was slowly advanced via both pedicles into the vertebral body in the AP and lateral projections. The balloons were inflated with 2 cc. Balloons were removed and methylmethacrylate was injected. The trocars were retracted and once no back flow was seen, trocars were removed. A dressign was applied. Post images showed the cement contained within the vertebral body. IMPRESSION: Kyphoplasty T12 vertebral body. There were no immediate complications.
[2018-09-14] MEDS ORDERED: Lactated Ringer's 1,000 ML IV ONE (11:15)
[2018-09-14] MEDS: Lactated Ringer's 1,000 ML IV SCH (11:32)
--- NOTE | 2018-09-14 15:18 | CP.PCM.PN ---
<Sourav Roblero - Last Filed: 09/14/18 15:29> Subjective - Date & Time of Evaluation Date of Evaluation: 09/14/18 Time of Evaluation: 08:30 - Subjective Subjective: Pt seen and examined at bedside after kyphoplasty. Pt in mild pain. Objective - Vital Signs/Intake and Output Vital Signs (last 24 hours): Temp Pulse Resp BP Pulse Ox 98.2 F 71 17 152/70 H 98 09/14/18 13:30 09/14/18 13:30 09/14/18 13:30 09/14/18 13:30 09/14/18 13:30 Intake and Output: 09/14/18 09/14/18 06:59 18:59 Intake Total 150 Balance 150 - Medications Medications: Current Medications Atenolol (Atenolol) 100 mg PO DAILY [facility] Last Admin: 09/14/18 11:35 Dose: 100 mg Lactated Ringer's (Lactated Ringer's) 1,000 mls @ 75 mls/hr IV .[id number] [facility] Last Admin: 09/14/18 11:32 Dose: Not Given Lidocaine (Lidoderm) 2 ea TD DAILY [facility] Last Admin: 09/14/18 11:53 Dose: 2 ea Lorazepam (Ativan) 1 mg PO DAILY [facility] Last Admin: 09/14/18 08:27 Dose: Not Given Morphine Sulfate (Morphine) 1 mg IVP Q6 PRN PRN Reason: Pain, severe (8-10) Nitroglycerin (Nitrostat Sl Tab) 0.4 mg SL Q5M PRN PRN Reason: Other Nortriptyline HCl (Pamelor) 10 mg PO HS [facility] Last Admin: 09/13/18 22:15 Dose: 10 mg Nortriptyline HCl (Pamelor) 25 mg PO HS [facility] Last Admin: 09/13/18 22:15 Dose: 25 mg Pantoprazole Sodium (Protonix Ec Tab) 40 mg PO Q12 [facility] Last Admin: 09/14/18 08:27 Dose: Not Given Primidone (Mysoline) 25 mg PO HS [facility] Last Admin: 09/13/18 22:15 Dose: 25 mg - Labs Labs: 09/14/18 05:55 09/14/18 05:55 PT 14.2 Seconds (9.8-13.1) H 12/06/18 05:40 INR 1.3 09/13/18 05:40 APTT 31.6 Seconds (25.6-37.1) 09/13/18 05:40 - Constitutional Appears: Non-toxic - Eye Exam Eye Exam: EOMI - ENT Exam ENT Exam: Mucous Membranes Moist - Respiratory Exam Respiratory Exam: Clear to Ausculation Bilateral, NORMAL BREATHING PATTERN. absent: Wheezes - Cardiovascular Exam Cardiovascular Exam: REGULAR RHYTHM, +S1, +S2 - GI/Abdominal Exam GI & Abdominal Exam: Soft, Normal Bowel Sounds. absent: Tenderness - Extremities Exam Extremities Exam: absent: Calf Tenderness - Neurological Exam Neurological Exam: Alert, Awake, CN II-XII Intact, Oriented x3 - Psychiatric Exam Psychiatric exam: Normal Affect, Normal Mood Assessment and Plan - Assessment and Plan (Free Text) Assessment: 88 yo female patient with PMH of HTN, GERD admitted for evaluation and management of chest pain and thoracic pain 2/2 T12 fracture. Plan: POD 0: Kyphoplasty, Dr. Acosta T12 fracture - hx of heavy lifting - Lumbar CT: severe multilevel degenerative disc disease, no acute fractures - CTA: chest, abdo, pelvis: Compression deformity of T12 - MRI of thoracic and lumbar spine: Acute compression fracture in the T12 vertebral body with approx. 50% loss of vertebral height without retropulsion or spinal canal stenosis. NO cord compression. No acute fracture in lumbar spine; multilevel degenerative disc disease. - continue: morphine PRN, lidoderm patches - PT/OT: ambulation with cane and TLSO brace - Physiatry: Dr. Garsia - IR: Dr. Acosta Transaminitis with history of Hep C -urine tox: neg -CMP: AST/ALT improving -d/c flexeril: hepatotoxic agent -hepatitis viral load: negative -Dr. Hobson consulted Chest pain - r/o ACS; Could be 2/2 to chronic GERD - s/p asa and NTG sl - troponin x3 negative - EKG normal sinus rhythm - Cardiology: Dr. Bass: atypical chest pain with no evidence of acute coronary syndrome. Stable and allowed to return home. - Pantoprazole - Echo: EF 55-60%; mild-moderate pulmonary hypertension History of HTN - Atenolol increased to 100 mg PO qDaily Peripheral neuropathy - controlled - continue home meds Hx of depression - controlled - continue home meds Prophylaxis - DVT: lovenox sc daily (will restart) - GI: Protonix bid Disposition planning: February discharge to TCU Case dw Dr. Kam Roblero MD PGY2 <Moris Humphrey D - Last Filed: 09/14/18 16:09> Objective - Vital Signs/Intake and Output Vital Signs (last 24 hours): Temp Pulse Resp BP Pulse Ox 98.2 F 71 17 152/70 H 98 09/14/18 13:30 09/14/18 13:30 09/14/18 13:30 09/14/18 13:30 09/14/18 13:30 Intake and Output: 09/14/18 09/14/18 06:59 18:59 Intake Total 150 Balance 150 - Medications Medications: Current Medications Atenolol (Atenolol) 100 mg PO DAILY [facility] Last Admin: 09/14/18 11:35 Dose: 100 mg Lactated Ringer's (Lactated Ringer's) 1,000 mls @ 75 mls/hr IV .[id number] [facility] Last Admin: 09/14/18 11:32 Dose: Not Given Lidocaine (Lidoderm) 2 ea TD DAILY [facility] Last Admin: 09/14/18 11:53 Dose: 2 ea Lorazepam (Ativan) 1 mg PO DAILY [facility] Last Admin: 09/14/18 08:27 Dose: Not Given Morphine Sulfate (Morphine) 1 mg IVP Q6 PRN PRN Reason: Pain, severe (8-10) Nitroglycerin (Nitrostat Sl Tab) 0.4 mg SL Q5M PRN PRN Reason: Other Nortriptyline HCl (Pamelor) 10 mg PO HS [facility] Last Admin: 09/13/18 22:15 Dose: 10 mg Nortriptyline HCl (Pamelor) 25 mg PO HS [facility] Last Admin: 09/13/18 22:15 Dose: 25 mg Pantoprazole Sodium (Protonix Ec Tab) 40 mg PO Q12 [facility] Last Admin: 09/14/18 08:27 Dose: Not Given Primidone (Mysoline) 25 mg PO HS [facility] Last Admin: 09/13/18 22:15 Dose: 25 mg - Labs Labs: 09/14/18 05:55 09/14/18 05:55 PT 14.2 Seconds (9.8-13.1) H 09/13/18 05:40 INR 1.3 09/13/18 05:40 APTT 31.6 Seconds (25.6-37.1) 09/13/18 05:40 Attending/Attestation - Attestation I have personally seen and examined this patient.: Yes I have fully participated in the care of the patient.: Yes I have reviewed all pertinent clinical information, including history, physical exam and plan: Yes Notes (Text): 09/14/18 16:08 Patient seen and examined with resident. Case discussed and agreed with assessment. Patient tolerated IR kyphoplasty. To resume PT in am and transfer to [facility] when accepted.
[2018-09-15 06:48] LABS: HEMOGLOBIN 12.3 g/dL (12.0-16.0); MEAN CELL VOLUME 88.5 fl (81.0-99.0); MEAN CORPUSCULAR HEMOGLOBIN 30.1 pg (27.0-31.0); RBC 4.09 Mil/uL (3.80-5.20); RED CELL DISTRIBUTION WIDTH 13.2 % (11.5-14.5); WHITE BLOOD COUNT 6.9 K/uL (4.8-10.8)
[2018-09-15 07:10] LABS: ALB/GLOB RATIO 0.9 (1.0-2.1); ALBUMIN 3.2 g/dL (3.5-5.0); ALT/SGPT 116 U/L (9-52); AST/SGOT 95 U/L (14-36); BLOOD UREA NITROGEN 13 mg/dl (7-17); CALCIUM 8.9 mg/dL (8.4-10.2); GFR NON-AFRICAN AMERICAN 59
[2018-09-15] MEDS: Lidocaine 5% Patch TD SCH (09:30)
[2018-09-15] MEDS: ATENOLOL 100 MG TAB PO SCH (09:31)
[2018-09-15] MEDS: Pantoprazole 40 mg EC Tab PO SCH ×2 (09:31→21:12)
--- NOTE | 2018-09-15 11:58 | CP.PCM.PN ---
<Rosanne Tidwell - Last Filed: 09/15/18 12:02> Subjective - Date & Time of Evaluation Date of Evaluation: 09/15/18 Time of Evaluation: 11:56 - Subjective Subjective: Patient seen and examined at bedside. States that back pain is improved after kyphoplasty procedure. Objective - Vital Signs/Intake and Output Vital Signs (last 24 hours): Temp Pulse Resp BP Pulse Ox 98.2 F 63 18 162/72 H 95 09/15/18 09:00 09/15/18 09:31 09/15/18 09:00 09/15/18 09:31 09/15/18 09:00 - Medications Medications: Current Medications Atenolol (Atenolol) 100 mg PO DAILY [facility] Last Admin: 09/15/18 09:31 Dose: 100 mg Lactated Ringer's (Lactated Ringer's) 1,000 mls @ 75 mls/hr IV .[id number] [facility] Last Admin: 09/14/18 11:32 Dose: Not Given Lidocaine (Lidoderm) 2 ea TD DAILY [facility] Last Admin: 09/15/18 09:30 Dose: 2 ea Lorazepam (Ativan) 1 mg PO DAILY [facility] Last Admin: 09/15/18 09:36 Dose: 1 mg Morphine Sulfate (Morphine) 1 mg IVP Q6 PRN PRN Reason: Pain, severe (8-10) Nitroglycerin (Nitrostat Sl Tab) 0.4 mg SL Q5M PRN PRN Reason: Other Nortriptyline HCl (Pamelor) 10 mg PO HS [facility] Last Admin: 09/14/18 22:04 Dose: 10 mg Nortriptyline HCl (Pamelor) 25 mg PO HS [facility] Last Admin: 09/14/18 22:04 Dose: 25 mg Pantoprazole Sodium (Protonix Ec Tab) 40 mg PO Q12 [facility] Last Admin: 09/15/18 09:31 Dose: 40 mg Primidone (Mysoline) 25 mg PO HS [facility] Last Admin: 09/14/18 22:03 Dose: 25 mg - Labs Labs: 09/15/18 05:30 09/15/18 05:30 PT 14.2 Seconds (9.8-13.1) H 09/13/18 05:40 INR 1.3 09/13/18 05:40 APTT 31.6 Seconds (25.6-37.1) 09/13/18 05:40 - Respiratory Exam Respiratory Exam: Clear to Ausculation Bilateral, NORMAL BREATHING PATTERN - Cardiovascular Exam Cardiovascular Exam: REGULAR RHYTHM, +S1, +S2 - GI/Abdominal Exam GI & Abdominal Exam: Soft, Normal Bowel Sounds. absent: Tenderness - Back Exam Back Exam: tenderness (improved) - Neurological Exam Neurological Exam: Alert, Awake, Oriented x3 - Psychiatric Exam Psychiatric exam: Normal Mood - Skin Skin Exam: Dry, Warm Assessment and Plan - Assessment and Plan (Free Text) Assessment: 88 yo female patient with PMH of HTN, GERD admitted for evaluation and management of chest pain and thoracic pain 2/2 T12 fracture. Patient's pain is controlled s/p kyphoplasty. Plans for discharge to home w/ home services, pending PT evaluation. Plan: POD 1: Kyphoplasty, Dr. Acosta T12 fracture - hx of heavy lifting - Lumbar CT: severe multilevel degenerative disc disease, no acute fractures - CTA: chest, abdo, pelvis: Compression deformity of T12 - MRI of thoracic and lumbar spine: Acute compression fracture in the T12 vertebral body with approx. 50% loss of vertebral height without retropulsion or spinal canal stenosis. NO cord compression. No acute fracture in lumbar spine; multilevel degenerative disc disease. - continue: morphine PRN, lidoderm patches - PT/OT: ambulation with cane and TLSO brace. PT re-consulted post-kyphoplasty - Physiatry: Dr. Garsia - IR: Dr. Acosta Transaminitis with history of Hep C -urine tox: neg -CMP: AST/ALT improving -d/c flexeril: hepatotoxic agent -hepatitis viral load: negative -Dr. Hobson consulted Chest pain - r/o ACS; Could be 2/2 to chronic GERD - s/p asa and NTG sl - troponin x3 negative - EKG normal sinus rhythm - Cardiology: Dr. Bass: atypical chest pain with no evidence of acute coronary syndrome. Stable and allowed to return home. - Pantoprazole - Echo: EF 55-60%; mild-moderate pulmonary hypertension History of HTN - Atenolol increased to 100 mg PO qDaily Peripheral neuropathy - controlled - continue home meds Hx of depression - controlled - continue home meds Prophylaxis - DVT: lovenox sc daily (will restart 48 hours after kyphoplasty) - GI: Protonix bid Disposition planning: May discharge to TCU <SachaMableaudra Duran - Last Filed: 09/15/18 15:42> Objective - Vital Signs/Intake and Output Vital Signs (last 24 hours): Temp Pulse Resp BP Pulse Ox 98.2 F 63 18 162/72 H 95 09/15/18 09:00 09/15/18 09:31 09/15/18 09:00 09/15/18 09:31 09/15/18 09:00 - Medications Medications: Current Medications Atenolol (Atenolol) 100 mg PO DAILY [facility] Last Admin: 09/15/18 09:31 Dose: 100 mg Lactated Ringer's (Lactated Ringer's) 1,000 mls @ 75 mls/hr IV .[id number] [facility] Last Admin: 09/14/18 11:32 Dose: Not Given Lidocaine (Lidoderm) 2 ea TD DAILY [facility] Last Admin: 09/15/18 09:30 Dose: 2 ea Lorazepam (Ativan) 1 mg PO DAILY [facility] Last Admin: 09/15/18 09:36 Dose: 1 mg Morphine Sulfate (Morphine) 1 mg IVP Q6 PRN PRN Reason: Pain, severe (8-10) Nitroglycerin (Nitrostat Sl Tab) 0.4 mg SL Q5M PRN PRN Reason: Other Nortriptyline HCl (Pamelor) 10 mg PO HS [facility] Last Admin: 09/14/18 22:04 Dose: 10 mg Nortriptyline HCl (Pamelor) 25 mg PO HS [facility] Last Admin: 09/14/18 22:04 Dose: 25 mg Pantoprazole Sodium (Protonix Ec Tab) 40 mg PO Q12 [facility] Last Admin: 09/15/18 09:31 Dose: 40 mg Primidone (Mysoline) 25 mg PO HS [facility] Last Admin: 09/14/18 22:03 Dose: 25 mg - Labs Labs: 09/15/18 05:30 09/15/18 05:30 PT 14.2 Seconds (9.8-13.1) H 09/13/18 05:40 INR 1.3 09/13/18 05:40 APTT 31.6 Seconds (25.6-37.1) 09/13/18 05:40 Attending/Attestation - Attestation I have personally seen and examined this patient.: Yes I have fully participated in the care of the patient.: Yes I have reviewed all pertinent clinical information, including history, physical exam and plan: Yes Notes (Text): Acute T12 Fracture s/p Kyphoplasty - back pain better, cont Pain Mgt, TLSO Brace - Physical therapy - plan for [facility] placement for further physical therapy Abn LFT prob due to Medications - trended down, will cont to monitor - hep C PCR : neg KEITH Apical Granuloma - AFB Quantiferon : neg
[2018-09-15] MEDS: Lactated Ringer's 1,000 ML IV SCH (21:17)
[2018-09-16] MEDS: ATENOLOL 100 MG TAB PO SCH (10:42)
[2018-09-16] MEDS: Pantoprazole 40 mg EC Tab PO SCH ×2 (10:42→21:53)
[2018-09-16] MEDS: Lidocaine 5% Patch TD SCH (10:43)
[2018-09-16] MEDS ORDERED: Enoxaparin 40 mg Syringe SC SCH (12:30)
--- NOTE | 2018-09-16 15:07 | CP.PCM.PN ---
<DiannRosanne - Last Filed: 09/16/18 15:05> Subjective - Date & Time of Evaluation Date of Evaluation: 09/16/18 Time of Evaluation: 09:45 - Subjective Subjective: Patient seen and examined at bedside. She reports worse back pain today after straining during BM this AM. Pain worsens when she moves. She denies numbness, tingling. Patient's charts, labs, and nurse notes reviewed. Objective - Vital Signs/Intake and Output Vital Signs (last 24 hours): Temp Pulse Resp BP Pulse Ox 97.6 F 64 22 161/74 H 95 09/16/18 08:36 09/16/18 10:42 09/16/18 08:36 09/16/18 10:42 09/16/18 08:36 - Medications Medications: Current Medications Atenolol (Atenolol) 100 mg PO DAILY [facility] Last Admin: 09/16/18 10:42 Dose: 100 mg Enoxaparin Sodium (Lovenox) 40 mg SC DAILY [facility]; Protocol Lactated Ringer's (Lactated Ringer's) 1,000 mls @ 75 mls/hr IV .[id number] [facility] Last Admin: 09/15/18 21:17 Dose: 75 mls/hr Lidocaine (Lidoderm) 2 ea TD DAILY [facility] Last Admin: 09/16/18 10:43 Dose: 2 ea Lorazepam (Ativan) 1 mg PO DAILY [facility] Last Admin: 09/16/18 10:58 Dose: 1 mg Morphine Sulfate (Morphine) 1 mg IVP Q6 PRN PRN Reason: Pain, severe (8-10) Nitroglycerin (Nitrostat Sl Tab) 0.4 mg SL Q5M PRN PRN Reason: Other Nortriptyline HCl (Pamelor) 10 mg PO HS [facility] Last Admin: 09/15/18 21:12 Dose: 10 mg Nortriptyline HCl (Pamelor) 25 mg PO HS [facility] Last Admin: 09/15/18 21:12 Dose: 25 mg Pantoprazole Sodium (Protonix Ec Tab) 40 mg PO Q12 [facility] Last Admin: 09/16/18 10:42 Dose: 40 mg Primidone (Mysoline) 25 mg PO HS [facility] Last Admin: 09/15/18 21:13 Dose: 25 mg - Labs Labs: 09/15/18 05:30 09/15/18 05:30 PT 14.2 Seconds (9.8-13.1) H 09/13/18 05:40 INR 1.3 09/13/18 05:40 APTT 31.6 Seconds (25.6-37.1) 09/13/18 05:40 - Constitutional Appears: Other (uncomfortable) - Respiratory Exam Respiratory Exam: Clear to Ausculation Bilateral, NORMAL BREATHING PATTERN - Cardiovascular Exam Cardiovascular Exam: REGULAR RHYTHM, +S1, +S2 - GI/Abdominal Exam GI & Abdominal Exam: Soft, Normal Bowel Sounds - Extremities Exam Extremities Exam: absent: Calf Tenderness, Pedal Edema, Tenderness - Back Exam Back Exam: tenderness, vertebral tenderness. absent: CVA tenderness (L), CVA tenderness (R) - Psychiatric Exam Psychiatric exam: Anxious - Skin Skin Exam: Dry, Intact, Warm Assessment and Plan - Assessment and Plan (Free Text) Assessment: 88 yo female patient with PMH of HTN, GERD admitted for evaluation and management of chest pain and thoracic pain 2/2 T12 fracture. Patient's pain is controlled s/p kyphoplasty. Plans for discharge to home w/ home services, pending PT evaluation. Plan: T12 fracture - POD 2: Kyphoplasty, Dr. Acosta - continue: morphine PRN, lidoderm patches, Toradol 25mg PO x1 today - hx of heavy lifting - Lumbar CT: severe multilevel degenerative disc disease, no acute fractures - CTA: chest, abdo, pelvis: Compression deformity of T12 - MRI of thoracic and lumbar spine: Acute compression fracture in the T12 vertebral body with approx. 50% loss of vertebral height without retropulsion or spinal canal stenosis. NO cord compression. No acute fracture in lumbar spine; multilevel degenerative disc disease. - PT/OT: ambulation with cane and TLSO brace. PT re-consulted post-kyphoplasty - Physiatry: Dr. Garsia - IR: Dr. Acosta Transaminitis with history of Hep C -likely medication-related -urine tox: neg -CMP: AST/ALT improving -d/c flexeril: hepatotoxic agent -hepatitis viral load: negative -Dr. Hobson consulted History of HTN - Atenolol increased to 100 mg PO qDaily Peripheral neuropathy - controlled - continue home meds Hx of depression - controlled - continue home meds Prophylaxis - DVT: lovenox sc daily (will restart 48 hours after kyphoplasty) - GI: Protonix bid Disposition planning: February discharge to TCU <SachaMable Renee - Last Filed: 09/16/18 15:59> Objective - Vital Signs/Intake and Output Vital Signs (last 24 hours): Temp Pulse Resp BP Pulse Ox 97.6 F 64 22 161/74 H 95 09/16/18 08:36 09/16/18 10:42 09/16/18 08:36 09/16/18 10:42 09/16/18 08:36 - Medications Medications: Current Medications Atenolol (Atenolol) 100 mg PO DAILY [facility] Last Admin: 09/16/18 10:42 Dose: 100 mg Enoxaparin Sodium (Lovenox) 40 mg SC DAILY [facility]; Protocol Lactated Ringer's (Lactated Ringer's) 1,000 mls @ 75 mls/hr IV .[id number] [facility] Last Admin: 09/15/18 21:17 Dose: 75 mls/hr Lidocaine (Lidoderm) 2 ea TD DAILY [facility] Last Admin: 09/16/18 10:43 Dose: 2 ea Lorazepam (Ativan) 1 mg PO DAILY [facility] Last Admin: 09/16/18 10:58 Dose: 1 mg Morphine Sulfate (Morphine) 1 mg IVP Q6 PRN PRN Reason: Pain, severe (8-10) Nitroglycerin (Nitrostat Sl Tab) 0.4 mg SL Q5M PRN PRN Reason: Other Nortriptyline HCl (Pamelor) 10 mg PO HS [facility] Last Admin: 09/15/18 21:12 Dose: 10 mg Nortriptyline HCl (Pamelor) 25 mg PO HS [facility] Last Admin: 09/15/18 21:12 Dose: 25 mg Pantoprazole Sodium (Protonix Ec Tab) 40 mg PO Q12 [facility] Last Admin: 09/16/18 10:42 Dose: 40 mg Primidone (Mysoline) 25 mg PO HS [facility] Last Admin: 09/15/18 21:13 Dose: 25 mg - Labs Labs: 09/15/18 05:30 09/15/18 05:30 PT 14.2 Seconds (9.8-13.1) H 09/13/18 05:40 INR 1.3 09/13/18 05:40 APTT 31.6 Seconds (25.6-37.1) 09/13/18 05:40 Attending/Attestation - Attestation I have personally seen and examined this patient.: Yes I have fully participated in the care of the patient.: Yes I have reviewed all pertinent clinical information, including history, physical exam and plan: Yes Notes (Text): Acute T12 Fracture s/p Kyphoplasty - back pain better, cont Pain Mgt, TLSO Brace - Physical therapy - plan for [facility] placement for further physical therapy Abn LFT prob due to Medications - trended down, will cont to monitor - hep C PCR : neg KEITH Apical Granuloma - AFB Quantiferon : neg
[2018-09-16 16:33] VITALS: RESP 18
--- NOTE | 2018-09-17 06:51 | CP.PCM.PN ---
Subjective - Date & Time of Evaluation Date of Evaluation: 09/17/18 Time of Evaluation: 06:51 - Subjective Subjective: Pt seen and examined while enjoying physical therapy using TLSO bracing. Denies acute overnight events. Afebrile. Experienced bowel movement this AM. Objective - Vital Signs/Intake and Output Vital Signs (last 24 hours): Temp Pulse Resp BP Pulse Ox 97.9 F 70 18 172/81 H 95 09/17/18 00:28 09/17/18 00:28 09/17/18 00:28 09/17/18 00:28 09/17/18 00:28 - Medications Medications: Current Medications Atenolol (Atenolol) 100 mg PO DAILY [facility] Last Admin: 09/16/18 10:42 Dose: 100 mg Docusate Sodium (Colace) 100 mg PO BID [facility] Enoxaparin Sodium (Lovenox) 40 mg SC DAILY [facility]; Protocol Last Admin: 09/16/18 16:00 Dose: 40 mg Lactated Ringer's (Lactated Ringer's) 1,000 mls @ 75 mls/hr IV .[id number] [facility] Last Admin: 09/15/18 21:17 Dose: 75 mls/hr Ibuprofen (Motrin Tab) 400 mg PO Q6 PRN PRN Reason: Pain, Mild (1-3) Lidocaine (Lidoderm) 2 ea TD DAILY [facility] Last Admin: 09/16/18 10:43 Dose: 2 ea Lorazepam (Ativan) 1 mg PO DAILY [facility] Last Admin: 09/16/18 10:58 Dose: 1 mg Morphine Sulfate (Morphine) 1 mg IVP Q6 PRN PRN Reason: Pain, severe (8-10) Nitroglycerin (Nitrostat Sl Tab) 0.4 mg SL Q5M PRN PRN Reason: Other Nortriptyline HCl (Pamelor) 10 mg PO HS [facility] Last Admin: 09/16/18 21:53 Dose: 10 mg Nortriptyline HCl (Pamelor) 25 mg PO HS [facility] Last Admin: 09/16/18 21:53 Dose: 25 mg Pantoprazole Sodium (Protonix Ec Tab) 40 mg PO Q12 [facility] Last Admin: 09/16/18 21:53 Dose: 40 mg Primidone (Mysoline) 25 mg PO HS [facility] Last Admin: 09/16/18 21:53 Dose: 25 mg - Labs Labs: 09/15/18 05:30 09/15/18 05:30 PT 14.2 Seconds (9.8-13.1) H 09/13/18 05:40 INR 1.3 09/13/18 05:40 APTT 31.6 Seconds (25.6-37.1) 09/13/18 05:40
[2018-09-17 06:54] LABS: ALBUMIN 3.1 g/dL (3.5-5.0); BILIRUBIN,DIRECT 0.2 mg/ml (0.0-0.4)
[2018-09-17 09:05] VITALS: TEMP 97.7
[2018-09-17] MEDS: Lidocaine 5% Patch TD SCH (10:05)
[2018-09-17] MEDS: ATENOLOL 100 MG TAB PO SCH (10:06)
--- NOTE | 2018-09-17 12:54 | CP.PCM.DIS ---
<Sourav Roblero - Last Filed: 09/17/18 14:43> Provider - Provider Date of Admission: 09/11/18 16:16 Attending physician: Eros Ruiz Consults: 09/09/18 20:24 Cardiology Consult Stat Comment: Consulting Provider: Oni Bass V Consulting Physician: Oni Bass V Reason for Consult: chest pain 09/09/18 22:58 Pastoral Care Referral Routine Comment: Physician Instructions: Reason For Exam: would like to see mike vu 09/09/18 23:34 Pulmonology Consult Routine Comment: Consulting Provider: Ricki Hobson Consulting Physician: Ricki Hobson Reason for Consult: Lung changes of Granulomatos diseases 09/10/18 06:47 Physiatry Consult Routine Comment: Consulting Provider: Myles Garsia Consulting Physician: Myles Garsia Reason for Consult: Back pain/Compression deformity of the lower Thoracic vertibral body Time Spent in preparation of Discharge (in minutes): 30 Hospital Course - Lab Results Lab Results: Micro Results 09/09/18 08:50 Naris MRSA Culture (Admit) - Final MRSA NOT DETECTED 09/10/18 19:13 Nose MRSA Culture (Admit) - Final MRSA NOT DETECTED Most Recent Lab Values WBC 6.9 K/uL (4.8-10.8) 09/15/18 05:30 RBC 4.09 Mil/uL (3.80-5.20) 09/15/18 05:30 Hgb 12.3 g/dL (12.0-16.0) 09/15/18 05:30 Hct 36.2 % (34.0-47.0) 09/15/18 05:30 MCV 88.5 fl (81.0-99.0) 09/15/18 05:30 MCH 30.1 pg (27.0-31.0) 09/15/18 05:30 MCHC 34.0 g/dL (33.0-37.0) 09/15/18 05:30 RDW 13.2 % (11.5-14.5) 09/15/18 05:30 Plt Count 260 K/uL (130-400) 09/15/18 05:30 MPV 7.0 fl (7.2-11.7) L 09/10/18 04:40 Neut % (Auto) 79.8 % (50.0-75.0) H 09/10/18 04:40 Lymph % (Auto) 10.3 % (20.0-40.0) L 09/10/18 04:40 [place] % (Auto) 6.6 % (0.0-10.0) 09/10/18 04:40 Eos % (Auto) 3.1 % (0.0-4.0) 09/10/18 04:40 Baso % (Auto) 0.2 % (0.0-2.0) 09/10/18 04:40 Neut # (Auto) 5.7 K/uL (1.8-7.0) 09/10/18 04:40 Lymph # (Auto) 0.7 K/uL (1.0-4.3) L 09/10/18 04:40 [place] # (Auto) 0.5 K/uL (0.0-0.8) 09/10/18 04:40 Eos # (Auto) 0.2 K/uL (0.0-0.7) 09/10/18 04:40 Baso # (Auto) 0.0 K/uL (0.0-0.2) 09/10/18 04:40 ESR 42 mm/hr (0-30) H 09/09/18 15:55 PT 14.2 Seconds (9.8-13.1) H 09/13/18 05:40 INR 1.3 09/13/18 05:40 APTT 31.6 Seconds (25.6-37.1) 09/13/18 05:40 Sodium 140 mmol/l (132-148) 09/15/18 05:30 Potassium 3.6 MMOL/L (3.6-5.0) 09/15/18 05:30 Chloride 102 mmol/L (98-107) 09/15/18 05:30 Carbon Dioxide 31 mmol/L (22-30) H 09/15/18 05:30 Anion Gap 11 (10-20) 09/15/18 05:30 BUN 13 mg/dl (7-17) 09/15/18 05:30 Creatinine 0.9 mg/dl (0.7-1.2) 09/15/18 05:30 Est GFR ( Amer) > 60 09/15/18 05:30 Est GFR (Non-Af Amer) 59 09/15/18 05:30 Random Glucose 99 mg/dL (65-105) 09/15/18 05:30 Hemoglobin A1c 5.3 % (4.2-6.5) 09/10/18 04:40 Calcium 8.9 mg/dL (8.4-10.2) 09/15/18 05:30 Iron 24 ug/dL (37-170) L 09/11/18 05:40 Ferritin 97.4 ng/Ml (11.1-264.0) 09/11/18 05:40 Total Bilirubin 0.4 mg/dl (0.2-1.3) 09/17/18 05:40 Direct Bilirubin 0.2 mg/ml (0.0-0.4) 09/17/18 05:40 AST 40 U/L (14-36) H D 09/17/18 05:40 ALT 71 U/L (9-52) H D 09/17/18 05:40 Alkaline Phosphatase 147 U/L (38-126) H D 09/17/18 05:40 Troponin I < 0.0120 ng/mL (0.00-0.120) 09/10/18 04:40 Total Protein 6.2 G/DL (6.3-8.2) L 09/17/18 05:40 Albumin 3.1 g/dL (3.5-5.0) L 09/17/18 05:40 Globulin 3.1 gm/dL (2.2-3.9) 09/17/18 05:40 Albumin/Globulin Ratio 1.0 (1.0-2.1) 09/17/18 05:40 Triglycerides 87 mg/DL (0-149) D 09/11/18 05:40 Cholesterol 122 mg/dL (0-199) 09/11/18 05:40 LDL Cholesterol Direct 70 mg/dL (0-129) 09/11/18 05:40 HDL Cholesterol 34 MG/DL (30-70) 09/11/18 05:40 Stool Occult Blood Negative (NEGATIVE) 09/11/18 15:00 Urine Opiates Screen Negative (NEGATIVE) 09/10/18 18:56 Urine Methadone Screen Negative (NEGATIVE) 09/10/18 18:56 Ur Barbiturates Screen Negative (NEGATIVE) 09/10/18 18:56 Ur Phencyclidine Scrn Negative (NEGATIVE) 09/10/18 18:56 Ur Amphetamines Screen Negative (NEGATIVE) 09/10/18 18:56 U Benzodiazepines Scrn Negative (NEGATIVE) 09/10/18 18:56 U Oth Cocaine Metabols Negative (NEGATIVE) 09/10/18 18:56 U Cannabinoids Screen Negative (NEGATIVE) 09/10/18 18:56 Hepatitis A IgM Ab Negative (NEGATIVE) 09/10/18 12:32 Hep Bs Antigen Negative (NEGATIVE) 09/10/18 12:32 Hep B Core IgM Ab Negative (NEGATIVE) 09/10/18 12:32 Hepatitis C Antibody Reactive (NEGATIVE) 09/10/18 12:32 HCV RNA Qual (TMA) Not detected 09/10/18 12:32 TB Test (QFT) Nil 0.82 IU/mL 09/10/18 12:40 TB Test Mitogen - Nil 5.55 IU/mL 09/10/18 12:40 TB Test TB - Nil 0.08 IU/mL 09/10/18 12:40 TB Test (QFT) Negative (Negative) 09/10/18 12:40 - Hospital Course Hospital Course: 88 yo female patient with PMH of HTN, GERD admitted for evaluation and management of chest pain and thoracic pain 2/2 T12 fracture. - Lumbar CT: severe multilevel degenerative disc disease, no acute fractures - CTA: chest, abdo, pelvis: Compression deformity of T12 - MRI of thoracic and lumbar spine: Acute compression fracture in the T12 vertebral body with approx. 50% loss of vertebral height without retropulsion or spinal canal stenosis. NO cord compression. No acute fracture in lumbar spine; multilevel degenerative disc disease. T12 fracture: POD 3: Kyphoplasty, Dr. Acosta PT/OT: ambulation with cane and TLSO brace: Recommends home with services 3x/week; 3 days Physiatry: Dr. Garsia: recommends continue PT possibly in TCU Chest pain: likely 2/2 to GERD; troponin negative x3, EKG reviewed. Cardio: Dr. Bass: atypical chest pain with no evidence of acute coronary syndrome. stable. Pt has history of Hep C and transaminitis on admission likely related to Flexeril; LFT improved; Hepatitis C viral load was negative HTN: elevated. Atenolol increased to [address] Sacha Roblero MD PGY2 Discharge Exam - Head Exam Head Exam: NORMAL INSPECTION Discharge Plan - Discharge Medications Prescriptions: Atenolol 100 mg PO DAILY #30 tab - Follow Up Plan Condition: FAIR Disposition: TRANSF TO SNF Instructions: Chest Pain That Is Not Caused by the Heart (DC), Low Back Pain (DC), Upper Back Pain (DC), Back Pain (GEN) Additional Instructions: Home Physical therapy <Mable Goncalves - Last Filed: 09/17/18 18:29> Provider - Provider Date of Admission: 09/11/18 16:16 Attending physician: Eros Ruiz Consults: 09/09/18 20:24 Cardiology Consult Stat Comment: Consulting Provider: Oni Bass V Consulting Physician: Oni Bass V Reason for Consult: chest pain 09/09/18 22:58 Pastoral Care Referral Routine Comment: Physician Instructions: Reason For Exam: would like to see mike vu 09/09/18 23:34 Pulmonology Consult Routine Comment: Consulting Provider: Ricki Hobson Consulting Physician: Ricki Hobson Reason for Consult: Lung changes of Granulomatos diseases 09/10/18 06:47 Physiatry Consult Routine Comment: Consulting Provider: Myles Garsia Consulting Physician: Myles Garsia Reason for Consult: Back pain/Compression deformity of the lower Thoracic vertibral body Hospital Course - Lab Results Lab Results: Micro Results 09/09/18 08:50 Naris MRSA Culture (Admit) - Final MRSA NOT DETECTED 09/10/18 19:13 Nose MRSA Culture (Admit) - Final MRSA NOT DETECTED Most Recent Lab Values WBC 6.9 K/uL (4.8-10.8) 09/15/18 05:30 RBC 4.09 Mil/uL (3.80-5.20) 09/15/18 05:30 Hgb 12.3 g/dL (12.0-16.0) 09/15/18 05:30 Hct 36.2 % (34.0-47.0) 09/15/18 05:30 MCV 88.5 fl (81.0-99.0) 09/15/18 05:30 MCH 30.1 pg (27.0-31.0) 09/15/18 05:30 MCHC 34.0 g/dL (33.0-37.0) 09/15/18 05:30 RDW 13.2 % (11.5-14.5) 09/15/18 05:30 Plt Count 260 K/uL (130-400) 09/15/18 05:30 MPV 7.0 fl (7.2-11.7) L 09/10/18 04:40 Neut % (Auto) 79.8 % (50.0-75.0) H 09/10/18 04:40 Lymph % (Auto) 10.3 % (20.0-40.0) L 09/10/18 04:40 [place] % (Auto) 6.6 % (0.0-10.0) 09/10/18 04:40 Eos % (Auto) 3.1 % (0.0-4.0) 09/10/18 04:40 Baso % (Auto) 0.2 % (0.0-2.0) 09/10/18 04:40 Neut # (Auto) 5.7 K/uL (1.8-7.0) 09/10/18 04:40 Lymph # (Auto) 0.7 K/uL (1.0-4.3) L 09/10/18 04:40 [place] # (Auto) 0.5 K/uL (0.0-0.8) 09/10/18 04:40 Eos # (Auto) 0.2 K/uL (0.0-0.7) 09/10/18 04:40 Baso # (Auto) 0.0 K/uL (0.0-0.2) 09/10/18 04:40 ESR 42 mm/hr (0-30) H 09/09/18 15:55 PT 14.2 Seconds (9.8-13.1) H 09/13/18 05:40 INR 1.3 09/13/18 05:40 APTT 31.6 Seconds (25.6-37.1) 09/13/18 05:40 Sodium 140 mmol/l (132-148) 09/15/18 05:30 Potassium 3.6 MMOL/L (3.6-5.0) 09/15/18 05:30 Chloride 102 mmol/L (98-107) 09/15/18 05:30 Carbon Dioxide 31 mmol/L (22-30) H 09/15/18 05:30 Anion Gap 11 (10-20) 09/15/18 05:30 BUN 13 mg/dl (7-17) 09/15/18 05:30 Creatinine 0.9 mg/dl (0.7-1.2) 09/15/18 05:30 Est GFR ( Amer) > 60 09/15/18 05:30 Est GFR (Non-Af Amer) 59 09/15/18 05:30 Random Glucose 99 mg/dL (65-105) 09/15/18 05:30 Hemoglobin A1c 5.3 % (4.2-6.5) 09/10/18 04:40 Calcium 8.9 mg/dL (8.4-10.2) 09/15/18 05:30 Iron 24 ug/dL (37-170) L 09/11/18 05:40 Ferritin 97.4 ng/Ml (11.1-264.0) 09/11/18 05:40 Total Bilirubin 0.4 mg/dl (0.2-1.3) 09/17/18 05:40 Direct Bilirubin 0.2 mg/ml (0.0-0.4) 09/17/18 05:40 AST 40 U/L (14-36) H D 09/17/18 05:40 ALT 71 U/L (9-52) H D 09/17/18 05:40 Alkaline Phosphatase 147 U/L (38-126) H D 09/17/18 05:40 Troponin I < 0.0120 ng/mL (0.00-0.120) 09/10/18 04:40 Total Protein 6.2 G/DL (6.3-8.2) L 09/17/18 05:40 Albumin 3.1 g/dL (3.5-5.0) L 09/17/18 05:40 Globulin 3.1 gm/dL (2.2-3.9) 09/17/18 05:40 Albumin/Globulin Ratio 1.0 (1.0-2.1) 09/17/18 05:40 Triglycerides 87 mg/DL (0-149) D 09/11/18 05:40 Cholesterol 122 mg/dL (0-199) 09/11/18 05:40 LDL Cholesterol Direct 70 mg/dL (0-129) 09/11/18 05:40 HDL Cholesterol 34 MG/DL (30-70) 09/11/18 05:40 Stool Occult Blood Negative (NEGATIVE) 09/11/18 15:00 Urine Opiates Screen Negative (NEGATIVE) 09/10/18 18:56 Urine Methadone Screen Negative (NEGATIVE) 09/10/18 18:56 Ur Barbiturates Screen Negative (NEGATIVE) 09/10/18 18:56 Ur Phencyclidine Scrn Negative (NEGATIVE) 09/10/18 18:56 Ur Amphetamines Screen Negative (NEGATIVE) 09/10/18 18:56 U Benzodiazepines Scrn Negative (NEGATIVE) 09/10/18 18:56 U Oth Cocaine Metabols Negative (NEGATIVE) 09/10/18 18:56 U Cannabinoids Screen Negative (NEGATIVE) 09/10/18 18:56 Hepatitis A IgM Ab Negative (NEGATIVE) 09/10/18 12:32 Hep Bs Antigen Negative (NEGATIVE) 09/10/18 12:32 Hep B Core IgM Ab Negative (NEGATIVE) 09/10/18 12:32 Hepatitis C Antibody Reactive (NEGATIVE) 09/10/18 12:32 HCV RNA Qual (TMA) Not detected 09/10/18 12:32 TB Test (QFT) Nil 0.82 IU/mL 09/10/18 12:40 TB Test Mitogen - Nil 5.55 IU/mL 09/10/18 12:40 TB Test TB - Nil 0.08 IU/mL 09/10/18 12:40 TB Test (QFT) Negative (Negative) 09/10/18 12:40 Attending/Attestation - Attestation I have personally seen and examined this patient.: Yes I have fully participated in the care of the patient.: Yes I have reviewed all pertinent clinical information, including history, physical exam and plan: Yes Notes (Text): Chest Pain, ACS ruled out , pain likely musculoskeletal Acute T12 Fracture s/p Kyphoplasty - back pain better, cont Pain Mgt, TLSO Brace - Physical therapy - d/c to [facility] for further physical therapy Abn LFT prob due to Medications - trended down, will cont to monitor - hep C PCR : neg KEITH Apical Granuloma - AFB Quantiferon : neg - ff up as outpt
[2018-09-17 13:21] VITALS: PULSE 70; O2SAT 96
[2018-09-17 14:17] VITALS: BP 120/74
== END 2018-09-17 14:29 | DRG 517 ==
LOC: H.ER 14:30 → H.ERHOLD 20:12 → H.ICU/CCU 21:44 → H.MEDSURG1 09-10 18:46 → OBSVTOIN 09-11 16:16
PROVIDERS: ADMIT Internal Medicine; ATTEND Internal Medicine
PROC: 0PU43JZ Supplement Thoracic Vertebra with Synthetic Substitute, Percutaneous Approach (ICD-10-PCS; 2018-09-14)
PROC: 0PS43ZZ Reposition Thoracic Vertebra, Percutaneous Approach (ICD-10-PCS; principal; 2018-09-14 08:00)
DX: S22.089A Unspecified fracture of T11-T12 vertebra, initial encounter for closed fracture (principal); F41.8 Other specified anxiety disorders; G62.9 Polyneuropathy, unspecified; B18.2 Chronic viral hepatitis C; D25.9 Leiomyoma of uterus, unspecified; E78.00 Pure hypercholesterolemia, unspecified; I12.9 Hypertensive chronic kidney disease with stage 1 through stage 4 chronic kidney disease, or unspecified chronic kidney disease; K04.5 Chronic apical periodontitis; K21.9 Gastro-esophageal reflux disease without esophagitis; K52.9 Noninfective gastroenteritis and colitis, unspecified; K59.00 Constipation, unspecified; M48.04 Spinal stenosis, thoracic region; M48.061 Spinal stenosis, lumbar region without neurogenic claudication; M51.36 Other intervertebral disc degeneration, lumbar region; N18.9 Chronic kidney disease, unspecified; N28.1 Cyst of kidney, acquired; Z87.891 Personal history of nicotine dependence; Z90.49 Acquired absence of other specified parts of digestive tract; M19.90 Unspecified osteoarthritis, unspecified site; R32 Unspecified urinary incontinence; R74.0 Nonspecific elevation of levels of transaminase and lactic acid dehydrogenase [LDH]; Z91.81 History of falling; Z79.899 Other long term (current) drug therapy; R07.89 Other chest pain; R79.89 Other specified abnormal findings of blood chemistry

== ENCOUNTER 2019-01-14 20:26 | Emergency (ER) | payer MEDICARE, OTHER ==
[2019-01-14 20:26] VITALS: BMI 23.3
--- NOTE | 2019-01-14 21:17 | ED PDOC ---
HPI: Hypertension/Hypotension Time Seen by Provider: 01/14/19 20:41 Chief Complaint (Nursing): High Blood Pressure Chief Complaint (Provider): head pressure History Per: Patient History/Exam Limitations: no limitations Onset/Duration Of Symptoms: Sudden Onset (just prior to arrival) Current Symptoms Are (Timing): Gone Now Associated Symptoms: Dizziness, Headache. denies: Chest Pain, Dyspnea, Blurred Vision, Focal Weakness Additional Complaint(s): Pt was having a conversation with her daughter over complicated health matters and when she hung up phone she felt sudden onset "heat" to her head and face and neck. This lasted for a few minutes and when she checked her BP it was 194/100, higher than ever checked. PMD. Dr Hobson Past Medical History Reviewed: Historical Data, Nursing Documentation, Vital Signs Vital Signs: Last Vital Signs Temp 98.6 F 01/14/19 20:28 Pulse 70 01/14/19 20:28 Resp 16 01/14/19 20:28 BP 167/90 H 01/14/19 20:28 Pulse Ox 98 01/14/19 20:28 - Medical History PMH: Arthritis, Depression, HTN, Hypercholesterolemia, Chronic Kidney Disease Denies: HIV - Surgical History Surgical History: Appendectomy, Cholecystectomy - Family History Family History: States: Unknown Family Hx - Social History Current smoker - smoking cessation education provided: No - Home Medications Home Medications: Ambulatory Orders Medication Instructions Recorded LORazepam [Ativan] 1 tab PO DAILY 09/09/18 Nortriptyline [Pamelor] 1 tab PO DAILY 09/09/18 Nortriptyline [Pamelor] 1 tab PO DAILY 09/09/18 Omeprazole 1 tab PO DAILY 09/09/18 Primidone [Mysoline] 0.5 tab PO DAILY 09/09/18 Aspirin [Aspirin Chewable] 81 mg PO DAILY chew 09/11/18 Lidocaine 5% [Lidoderm] 2 ea TD DAILY #60 patch 09/11/18 Naproxen 500 mg PO DAILY PRN tab 09/11/18 Atenolol 100 mg PO DAILY #30 tab 09/17/18 - Allergies Allergies/Adverse Reactions: Allergies Allergy/AdvReac Type Severity Reaction Status Date / Time Diazepam Allergy FATIGUE Uncoded 01/14/19 20:28 Review of Systems ROS Statement: Except As Marked, All Systems Reviewed And Found Negative (and as per HPI) Neurological: Positive for: Headache, Dizziness Physical Exam - Reviewed Nursing Documentation Reviewed: Yes Vital Signs Reviewed: Yes - Physical Exam Appears: Positive for: Non-toxic, No Acute Distress Head Exam: Positive for: ATRAUMATIC, NORMOCEPHALIC Skin: Positive for: Warm, Dry Eye Exam: Positive for: EOMI, PERRL ENT: Negative for: Pharyngeal Erythema, Tonsillar Exudate Neck: Positive for: Painless ROM, Supple Cardiovascular/Chest: Positive for: Regular Rate, Rhythm. Negative for: Murmur Respiratory: Positive for: Normal Breath Sounds. Negative for: Respiratory Distress Gastrointestinal/Abdominal: Positive for: Soft. Negative for: Tenderness Back: Positive for: Normal Inspection. Negative for: Decreased ROM Extremity: Positive for: Normal ROM. Negative for: Deformity Lymphatic: Negative for: Adenopathy Neurological/Psych: Positive for: Awake, Alert. Negative for: Motor/Sensory Deficits - Laboratory Results Result Diagrams: 01/14/19 22:04 01/14/19 22:04 Lab Results: no emergently significant lab abnormalities - ECG ECG: Positive for: Interpreted By Ms ECG Rhythm: Positive for: Normal QRS, Normal ST Segment, Sinus Rhythm O2 Sat by Pulse Oximetry: 98 Pulse Ox Interpretation: Normal - Progress ED Course And Treament: Name: JAMAR MO Exam Date: Jan 14, 2019 10:07:29 PM EDT Modality Type: CT Description: CT - BRAIN WITH CORONAL AND SAGITTAL MPRS Gender: F Laterality: Not applicable : 05[birth year]18/30 Referring Physician: Lynsey Alberto EXAM: CT Head without Intravenous Contrast. CLINICAL HISTORY: Severe sudden headache TECHNIQUE: Axial computed tomography images of the head/brain without intravenous contrast. 820.65 mGy-cm COMPARISON: Comparison is made to previous CT brain examination dated 01/10/2019. FINDINGS: BRAIN No acute intraparenchymal hemorrhage. No mass lesion. No CT evidence for acute territorial infarct. No midline shift or extra-axial collections. There is moderate age-appropriate diffuse cerebral/cerebellar atrophy noted. There are bilateral confluent periventricular and subcortical white matter hypolucencies compatible with severe chronic microvascular disease. Calcification is again noted within the basal ganglia bilaterally; usually an idiopathic finding. VENTRICLES: No hydrocephalus. VASCULAR: Atherosclerotic vascular plaquing is noted within the carotid siphons bilaterally. ORBITS: The orbits are unremarkable. SINUSES AND MASTOIDS: The paranasal sinuses and mastoid air cells are clear. BONES: No fracture. SOFT TISSUES: Unremarkable. IMPRESSION: 1. No acute intracranial abnormality. 2. Moderate age-appropriate diffuse cerebral/cerebellar atrophy. 3. Severe chronic microvascular disease. 4. Atherosclerotic vascular plaquing within the carotid siphons bilaterally. 5. No significant interval change. Electronically signed on Jan 14, 2019 10:34:47 PM EDT by: Real Augustin M.D., KEMI Certified By ABR & CBCCT Fellowship Trained MRI and CT Specialist Disposition - Clinical Impression Clinical Impression: Hypertension Counseled Patient/Family Regarding: Studies Performed, Diagnosis, Need For Followup - Disposition Referrals: Ricki Hobson MD [Staff Provider] - (FOLLOWUP WITH DR HOBSON TOMORROW FOR REEVALUATION) Ze Saenz MD [Staff Provider] - (CONTINUE YOUR NEUROLOGIC WORKUP WITH DR SAENZ) Disposition: Routine/Home Disposition Time: 23:07 Condition: STABLE Additional Instructions: CONTINUE ALL YOUR MEDICATIONS PRESCRIBED Instructions: High Blood Pressure (DC)
[2019-01-14 22:07] LABS: BASO % 0.6 % (0.0-2.0); EOS # 0.1 K/uL (0.0-0.7); EOS % 1.9 % (0.0-4.0); HEMOGLOBIN 13.6 g/dL (12.0-16.0); LYMPH # 1.8 K/uL (1.0-4.3); LYMPH % 24.3 % (20.0-40.0); MEAN CELL VOLUME 87.9 fl (81.0-99.0); MEAN CORPUSCULAR HGB CONC 34.1 g/dL (33.0-37.0); MEAN PLATELET VOLUME 7.1 fl (7.2-11.7); MONO # 0.6 K/uL (0.0-0.8); MONO % 7.7 % (0.0-10.0); NEUT # 4.7 K/uL (1.8-7.0); NEUT % 65.5 % (50.0-75.0); RBC 4.54 Mil/uL (3.80-5.20); RED CELL DISTRIBUTION WIDTH 14.5 % (11.5-14.5); WHITE BLOOD COUNT 7.2 K/uL (4.8-10.8)
[2019-01-14 22:18] LABS: ALB/GLOB RATIO 1.1 (1.0-2.1); ALBUMIN 4.2 g/dL (3.5-5.0); ALT/SGPT 19 U/L (9-52); AST/SGOT 30 U/L (14-36); BLOOD UREA NITROGEN 14 mg/dl (7-17); CALCIUM 9.4 mg/dL (8.4-10.2); GFR NON-AFRICAN AMERICAN > 60
[2019-01-14 22:19] LABS: INR 1.1; PROTHROMBIN TIME 12.7 Seconds (9.8-13.1)
[2019-01-14 22:21] LABS: PARTIAL THROMBOPLASTIN TIME 32.8 Seconds (25.6-37.1)
[2019-01-14 22:30] LABS: B-TYPE NATRIURETIC PEPTIDE 294 pg/ml (0-900)
[2019-01-14 23:36] VITALS: BP 156/81; PULSE 69; RESP 12; TEMP 98.5; O2SAT 96
--- NOTE | 2019-01-15 08:40 | CARD ---
APPROVED REPORT Date of service: 01/14/2019 EKG Measurement Heart [id number] <Conclusion> Normal sinus rhythm Normal Electrocardiogram
--- NOTE | 2019-01-15 09:29 | CT ---
Date of service: 01/14/2019 PROCEDURE: CT HEAD WITHOUT CONTRAST. HISTORY: severe suddent onset headache COMPARISON: Unenhanced head CT 01/10/2019. TECHNIQUE: Axial computed tomography images were obtained through the head/brain without intravenous contrast. Radiation dose: Total exam DLP = 820.65 mGy-cm. This CT exam was performed using one or more of the following dose reduction techniques: Automated exposure control, adjustment of the mA and/or kV according to patient size, and/or use of iterative reconstruction technique. FINDINGS: HEMORRHAGE: No intracranial hemorrhage. BRAIN: Good corticomedullary differentiation is seen. Reiterated diffuse cerebral atrophy and chronic microangiopathy. No suspicious extra-axial fluid collection is identified and the midline brain anatomy appears grossly nonfocal as imaged. No mass effect identified. VENTRICLES: Unremarkable. No hydrocephalus. CALVARIUM: Unremarkable. PARANASAL SINUSES: Unremarkable as visualized. No significant inflammatory changes. MASTOID AIR CELLS: Unremarkable as visualized. No inflammatory changes. OTHER FINDINGS: None. IMPRESSION: No interval acute intracranial findings. Stable age related neuro degenerative changes identified once again. Follow-up CT or MRI are available as clinically warranted. Preliminary report provided by Alec, 01/14/2019, 10:34 p.m..
== END 2019-01-14 23:20 | disposition home or self-care (01) ==
LOC: H.ER 20:26
DX: I10 Essential (primary) hypertension (principal); E78.00 Pure hypercholesterolemia, unspecified; I12.9 Hypertensive chronic kidney disease with stage 1 through stage 4 chronic kidney disease, or unspecified chronic kidney disease